=== PATIENT | male | born 1940 | race Caucasian/White ===

== ENCOUNTER → 2017-11-12 | Outpatient (CLI) | payer MEDICARE, BC ==
[~2017-11-12] MED LIST: ASPIR 8181 MG PO; BENTYL 20 MG TA20 M1 PO; BRILINTA90 MG PO; CENTRUM SILVER1 EAC4 PO; CLONAZEPAM 0.50.5 M1 PO; DILAUDID 2 MG TA2 MG PO; EFFIENT10 MG PO; ELIQUIS2.5 MG PO; ELIQUIS5 MG PO; GABAPENTIN 100100 MG PO; KLONOPIN0.5 MG PO; LEVAQUIN 750 M750 MG PO; LISINOPRIL20 MG PO; MELATONIN3 MG PO; NEURONTIN 300M300 M2 PO; NORCO 5-325 TA1 EACH PO; NORVASC10 MG PO; OXYCODONE HCL 55 MG PO; PRILOSEC 20 MG20 MG PO; PRILOSEC20 MG PO; PROBIOTIC1 EAC2 PO; SINGULAIR 10 MG10 M1 PO; TRAMADOL 50 MG50 MG PO; VENTOLIN HFA 1818 GM INH; VITAMIN B-12500 MCG PO
== END ==
LOC: M.NUC 11-07 15:04
DX: T84.032A Mechanical loosening of internal right knee prosthetic joint, initial encounter (principal); R20.2 Paresthesia of skin; I25.110 Atherosclerotic heart disease of native coronary artery with unstable angina pectoris; K21.9 Gastro-esophageal reflux disease without esophagitis; E78.5 Hyperlipidemia, unspecified; Z90.49 Acquired absence of other specified parts of digestive tract; Z96.653 Presence of artificial knee joint, bilateral; Z98.890 Other specified postprocedural states

== ENCOUNTER 2017-12-23 06:11 | Inpatient (IN) | payer MEDICARE, BC ==
[2017-12-04 10:17] LABS: ABSOLUTE EOSINOPHILS 0.2 thou/uL (0.0-0.7); ABSOLUTE LYMPHOCYTES 1.3 thou/uL (0.8-5.3); ABSOLUTE MONOCYTES 0.5 thou/uL (0.0-1.2); BASOPHILS 0.7 %; EOSINOPHILS 2.5 %; HEMATOCRIT 44.3 % (42.0-52.0); HEMOGLOBIN 15.2 gm/dL (14.0-18.0); LYMPHOCYTES 21.9 %; MCH 30.1 pg (26.0-34.0); MCHC 34.2 g/dL (28.0-37.0); MONOCYTES 8.3 %; MPV 7.2 fl. (7.2-11.1); NUCLEATED RBCS 0 /100WBC; PLATELET COUNT* 184 thou/uL (150-400); POLYS 66.6 %; RBC 5.03 mil/uL (4.50-6.00); RDW-CV 13.3 % (10.5-14.5); WBC 6.1 thou/uL (4.0-11.0)
[2017-12-04 10:24] LABS: APTT 27.1 Seconds (25.0-31.3); PROTIME 10.2 Seconds (9.20-11.50)
[2017-12-04 10:34] LABS: ALBUMIN 3.7 g/dL (3.4-5.0); CALCIUM 8.9 mg/dL (8.5-10.1); POTASSIUM 4.7 mmol/L (3.5-5.1); TOTAL BILIRUBIN 0.3 mg/dL (<0.1-1.0); TOTAL PROTEIN 7.1 g/dL (6.4-8.2)
[2017-12-04 11:18] LABS: ESR (SEDRATE) 12 mm/hr (0-20)
[~2017-12-23] VITALS: Ht 188 cm; Wt 95.3 kg
--- NOTE | ~2017-12-23 | EKG ---
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
[~2017-12-23 06:11] MED LIST changes: -DILAUDID 2 MG TA2 MG PO; -ELIQUIS2.5 MG PO; -OXYCODONE HCL 55 MG PO
[2017-12-23 06:51] VITALS: BP 138/73
--- NOTE | 2017-12-23 11:35 | NUR ---
ORDER RECEIVED FOR "OT EVALUATION AND TREATMENT". PLAN TO DEFER TO PHYSICAL THERAPY AT THIS TIME.
[2017-12-23 12:00] VITALS: BP 116/59
--- NOTE | 2017-12-23 12:00 | NUR ---
PATIENT ARRIVED TO UNIT AT 1150. ALERT AND ORIENTED X4. UP WITH ASSIST X1 WITH WALKER AND GAIT BELT. IV IS PATENT AND INFUSING. DENIES NEED FOR PAIN MEDICATION. DENIES NAUSEA. PATIENT HAS BEEN ORIENTATED TO ROOM. VSS ON ROOM AIR. CAP-NO IN PLACE. CALL LIGHT IS WITHIN REACH. NURSING WILL CONTINUE TO MONITOR.
[2017-12-23 16:00] VITALS: BP 152/60
--- NOTE | 2017-12-23 17:15 | NUR ---
ALERT AND ORIENTED X4. UP WITH ASSIST X1 WITH WALKER AND GAIT BELT. IV IS PATENT AND INFUSING. DENIES NEED FOR PAIN MEDICATION. DENIES NAUSEA. ICE PACK IN PLACE. TOLERATING DIET. VSS ON ROOM AIR. HOURLY ROUNDS HAVE BEEN MAINTAINED THROUGHOUT SHIFT. CALL LIGHT IS WITHIN REACH. NURSING WILL CONTINUE TO MONITOR.
[2017-12-23 20:00] VITALS: BP 111/72
[2017-12-23 23:47] VITALS: BP 100/59
[2017-12-24 04:35] VITALS: BP 115/67
[2017-12-24 05:14] LABS: HEMATOCRIT 37.7 % (42.0-52.0); HEMOGLOBIN 13.1 gm/dL (14.0-18.0)
--- NOTE | 2017-12-24 05:31 | NUR ---
PATIENT ALERT AND ORIENTED. VITALS STABLE. RA. DENIES THE NEED FOR PAIN MEDICATION. VOIDING ADEQUATELY PER URINAL. RIGHT KNEE DRESSING C/D/I. DENIES NAUSEA. HOURLY ROUDNS. BED ALARM IN USE. NURSING WILL CONTINUE TO MONITOR.
[2017-12-24 12:27] VITALS: BP 110/58
[2017-12-24] MEDS ORDERED: ELIQUIS2.5 MG PO (12:49)
[2017-12-24] MEDS ORDERED: OXYCODONE HCL 55 MG PO (12:50)
[2017-12-24 12:52] VITALS: BP 110/58
[2017-12-24 16:03] VITALS: BP 123/82
--- NOTE | 2017-12-24 18:14 | NUR ---
PATIENT REMAINS ALERT AND ORIENTED X4. VITAL SIGNS STABLE. OXYGEN SAT 95% ON ROOM AIR. CV: S1S2 WITH HX OF CARDIAC STENTS, HTN. LUNGS ARE DIMINISHED AND PATIENT STATES HE HAS BEEN COUGHING BUT THIS WAS NOT OBSERVED ON THIS SHIFT. PATIENT INITALLY REFUSED TO TAKE PAIN MEDICATION THROUGHOUT THE NIGHT. OXY IR STARTED THIS MORNING WITH THERAPY. THIS AFTERNOON PAIN BECAME UNTOLERABLE PATIENT RATING IT 10/10. MORPHINE GIVEN WITHOUT RELIEF. DOCTOR MICHAEL NOTIFIED. ORDERS TO DC OXY AND START DILAUDID. PATIENTS RELUCTANT TO LET HIM HAVE PAIN MEDICAION THIS MORNING DUE TO PAST EXPERIENCES WITH OXY. AFTER EDUCATION BOTH WERE AGREEABLE THAT HE NEEDED PAIN MEDS AND HE WOULD TRY THE DILAUDID. PATIENT ONLY ABLE TO PARTICIPATE WITH AM THERAPY. IN BED THIS AFTERNOON. DRESSING TO KNEE DRY AND INTACT. ICE PACKS PROVIDED. PATIENT WAS FOUND TO BE AMBULATING BY HIMSELF IN ROOM. BED ALARM IN USE AND EDUCATION GIVEN. IV IN LEFT FA SL. CALL LIGHT WITHIN REACH. NURSING WILL CONTINUE TO MONITOR.
[2017-12-24 20:00] VITALS: BP 177/82
[2017-12-25 00:21] VITALS: BP 152/69
--- NOTE | 2017-12-25 04:51 | NUR ---
PATIENT HAS REMAINED ALERT AND ORIENTED X 4 THROUGHOUT THE SHIFT. RESTING AT INTERVALS ON HOURLY ROUNDS. SOMEWHAT BETTER PAIN CONTROL WITH CHANGE TO ORAL DILAUDID. PATIENT IS REPORTING THAT THE PAIN SEEMS TO BE HIS NERVE PAIN HE HAS BEEN EXPERIENCING SINCE LAST MARCH BUT MUCH WORSE THAN IT HAD BEEN. DRESSING CLEAN AND DRY RIGHT KNEE. VITAL SIGNS STABLE. USING URINAL AT BEDSIDE. HAVE NOT ASSESSED TRANSFERS. CONTINUE TO MONITOR.
[2017-12-25 04:59] LABS: HEMATOCRIT 38.8 % (42.0-52.0)
[2017-12-25 05:31] VITALS: BP 162/82
[2017-12-25 06:29] VITALS: BP 158/79
--- NOTE | 2017-12-25 06:30 | NUR ---
CALLED TO ROOM FOR STATED LIGHT-HEADEDNESS. VITAL SIGNS STABLE BUT WITH O2 SAT 88-90% ON ROOM AIR. O2 RE-APPLIED AT 2L/MIN. RE-CHECK 94% WITHIN A MINUTE. PATIENT HAS BEEN RECEIVING ORAL DILAUDID Q4H. THE LAST DOSE 0400. CONTINUE TO MONITOR FOR RESOLUTION.
[2017-12-25 08:00] VITALS: BP 168/92
[2017-12-25 08:10] VITALS: BP 168/92
[2017-12-25 08:15] VITALS: BP 87/42
[2017-12-25] MEDS ORDERED: DILAUDID 2 MG TA2 MG PO (12:13)
--- NOTE | 2017-12-25 12:41 | NUR ---
SPOKE WITH PT.ABOUT TODAY'S DISCHARGE. HE LIVES WITH HIS AND SHE WILL BE WITH HIM 06/05. HE SAID HIS PAIN IS VERY MUCH IMPROVED. HE CONTINUES TO WANT TO GO TO OUTPT.THERAPY IN [place] AT [facility]. WILL FAX ORDERS TO [facility]. CALLED IN PRESCRIPTION WRITTEN FOR JENNIFER TO [place] [facility]. COPAY IS $19. INFORMED PT. HE HAS A WALKER AT HOME.
--- NOTE | 2017-12-25 14:32 | NUR ---
REPORT GIVEN TO NURSE ASSUMING CARE.
--- NOTE | 2017-12-25 15:00 | NUR ---
PATIENT DISCHARGING TO HOME AT THIS TIME. IV REMOVED. PATIENT AND SPOUSE VERBALIZE UNDERSTANDING OF DC INSTRUCTIONS. FILLED SCRIPTS PRIOR TO DC. PATIENT PARTICIPATED WITH PHYSICAL THERAPY. ABLE TO TRANSFER AND AMBULATE WITH STANDBY ASSIST.
--- NOTE | 2017-12-26 08:53 | NUR ---
CALLED AND FAXED REFERRAL FOR OUTPT THERAPY TO [facility] IN [place], SPOKE WITH DOUGLAS [phone] FAX [phone]
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
== END 2017-12-25 15:02 | disposition home or self-care (01) | DRG 464 ==
LOC: M.TBA 06:11 → M.PRE 08:29 → M.ORTHSURG 11:58 → M.PRE 14:05 → M.ORTHSURG 12-25 15:02
PROVIDERS: Orthopaedic Surgery; ADMIT Internal Medicine
PROC: 0SPC09Z Removal of Liner from Right Knee Joint, Open Approach (ICD-10-PCS; principal; 2017-12-23)
PROC: 0SUC09C Supplement Right Knee Joint with Liner, Patellar Surface, Open Approach (ICD-10-PCS; principal; 2017-12-23)
DX: T84.032A Mechanical loosening of internal right knee prosthetic joint, initial encounter (principal); R71.0 Precipitous drop in hematocrit; M17.11 Unilateral primary osteoarthritis, right knee; G62.9 Polyneuropathy, unspecified; Y83.8 Other surgical procedures as the cause of abnormal reaction of the patient, or of later complication, without mention of misadventure at the time of the procedure; I10 Essential (primary) hypertension; Z96.653 Presence of artificial knee joint, bilateral; E78.5 Hyperlipidemia, unspecified; I25.10 Atherosclerotic heart disease of native coronary artery without angina pectoris; Y92.89 Other specified places as the place of occurrence of the external cause; Z90.49 Acquired absence of other specified parts of digestive tract; Z86.711 Personal history of pulmonary embolism; Z79.82 Long term (current) use of aspirin; Z79.899 Other long term (current) drug therapy; Z23 Encounter for immunization

== ENCOUNTER → 2018-01-02 | Outpatient (CLI) | payer MEDICARE, BC ==
[~2018-01-02] MED LIST changes: +DILAUDID 2 MG TA2 MG PO; +ELIQUIS2.5 MG PO; +OXYCODONE HCL 55 MG PO
== END ==
LOC: M.ULTRA 12:58
DX: M71.21 Synovial cyst of popliteal space [Baker], right knee (principal); I82.890 Acute embolism and thrombosis of other specified veins

== ENCOUNTER → 2019-04-01 | Outpatient (CLI) | payer MEDICARE, BC ==
--- NOTE | 2019-04-01 16:06 | EXE ---
[place] [address] STRESS ECHOCARDIOGRAM Name: PILAR LANTIGUA Room: [facility]#: [id number] Admission: 04/01/19 Attend Phys: Turner Berman MD Discharge: Date of : 44 Date of Service: 04/01/19 1606 Report #: [id number] THIS REPORT FOR: //name// APPROVED REPORT Study performed: 04/01/2019 14:57:40 Exam: Dobutamine Stress Echo Indication: CAD Patient Location: Out-Patient Stress Nurse: Casie Varghese RN Supervising Physician: Turner Berman MD Ht: 6 ft 2 in HR: 61 bpm BP: 129/87 mmHg Medical History Cardiac Risk Factors: Hyperlipidemia, HTN Procedure The patient underwent a Pharmacological Stress Test using Dobutamine. Blood pressure, heart rate, and EKG were monitored. An Echocardiogram was performed by motion study technician in four stages in quad fashion. At peak stress, four selected images were obtained and placed side by side with resting images for comparison. Stress Test Details Stress Test: Pharmacological Stress Test using Dobutamine. HR Resting HR: 61 bpm Max Heart Rate (APMHR): 143 bpm Max HR Achieved: 123 bpm Target HR (85% APMHR): 121 bpm % of APMHR: 86 Recovery HR: 83 bpm HR response to stress: Normal HR response to stress BP Resting BP: 129/87 mmHg Max BP: 147/65 mmHg Recovery BP: 142/67 mmHg BP response to stress: Normal blood pressure response to stress. ECG Resting ECG: Sinus Rhythm, [place] [address] STRESS ECHOCARDIOGRAM Name: PILAR LANTIGUA Room: [facility]#: [id number] Admission: 04/01/19 Attend Phys: Turner Berman MD Discharge: Date of : 44 Date of Service: 04/01/19 1606 Report #: [id number] Stress ECG: Sinus Rhythm, nonspecific ST-T abnormalities ST Change: Upsloping ST depression Maximum ST Deviation: 0.5 mm Arrhythmia: VPC's Recovery ECG: Sinus Rhythm, nonspecific ST-T abnormalities Recovery ST Change: Upsloping ST depression Recovery ST Deviation: 0.5 mm Recovery Arrhythmia: VPC Clinical Reason for Termination: Completed protocol Pre-Stress Echo The resting Echocardiogram showed normal left ventricular contractility with an estimated Ejection Fraction of about 55-60%. Post-Stress Echo The stress Echocardiogram showed normal left ventricular contractility with an estimated Ejection Fraction of about >70%. Conclusion Clinical Response: Non-ischemic Stress ECG Response: Indeterminant Stress Echo Images: Non-ischemic low risk dobutamine stress echo for predicting future cardiac events Other Information Study Quality: Good <Conclusion> low risk dobutamine stress echo for predicting future cardiac events <ELECTRONICALLY SIGNED> By: Turner Berman MD, [facility] 04/01/19 160 05 05 Turner Berman MD, [facility] /INF
== END ==
LOC: M.CRD 14:28
DX: I25.10 Atherosclerotic heart disease of native coronary artery without angina pectoris (principal); E78.5 Hyperlipidemia, unspecified; I10 Essential (primary) hypertension; Z79.899 Other long term (current) drug therapy

== ENCOUNTER 2019-05-17 19:04 | Emergency (ER) | payer MEDICARE, BC ==
[~2019-05-17] VITALS: Ht 188 cm; Wt 95.3 kg
[2019-05-17] MEDS ORDERED: LIPITOR 20 MG T20 M1 PO (19:19)
[2019-05-17] MEDS ORDERED: ASPIR 8181 MG PER TUBE (19:19)
[2019-05-17 19:57] LABS: ABSOLUTE EOSINOPHILS 0.2 thou/uL (0.0-0.7); ABSOLUTE LYMPHOCYTES 1.7 thou/uL (0.8-5.3); ABSOLUTE MONOCYTES 0.5 thou/uL (0.0-1.2); ABSOLUTE NEUTROPHILS 3.8 thou/uL (1.6-8.1); BASOPHILS 0.5 %; EOSINOPHILS 2.6 %; HEMATOCRIT 42.2 % (42.0-52.0); HEMOGLOBIN 14.4 gm/dL (14.0-18.0); LYMPHOCYTES 27.5 %; MCH 30.1 pg (26.0-34.0); MCHC 34.1 g/dL (28.0-37.0); MCV 88.2 fL (80.0-100.0); MONOCYTES 8.1 %; MPV 7.4 fl. (7.2-11.1); NUCLEATED RBCS 0 /100WBC; PLATELET COUNT* 142 thou/uL (150-400); POLYS 61.3 %; RBC 4.78 mil/uL (4.50-6.00); WBC 6.1 thou/uL (4.0-11.0)
[2019-05-17 20:03] LABS: CHLORIDE 104 mmol/L (98-107); CO2 31 mmol/L (21-32); POTASSIUM 3.8 mmol/L (3.5-5.1); SODIUM 142 mmol/L (136-145)
[2019-05-17 20:04] LABS: ANION GAP 7 mmol/L (7-16); BUN 23 mg/dL (7-18); CALCIUM 9.1 mg/dL (8.5-10.1); CREATININE 1.1 mg/dL (0.6-1.3); GLUCOSE 122 mg/dL (70-99)
[2019-05-17 20:06] LABS: INR 1.1; PROTIME 11.1 Seconds (9.20-11.50)
[2019-05-17 20:16] LABS: ALBUMIN 3.7 g/dL (3.4-5.0); ALKALINE PHOSPHATASE 94 U/L (46-116); NT-PRO BRAIN NAT PEPTIDE 207 pg/mL (<300); SGOT 17 U/L (15-37); SGPT 28 U/L (30-65); TOTAL BILIRUBIN 0.7 mg/dL (<0.1-1.0); TOTAL PROTEIN 6.9 g/dL (6.4-8.2); TROPONIN-I LEVEL <0.06 ng/mL (<0.06)
[2019-05-17 21:27] LABS: URINE BILIRUBIN NEGATIVE (Negative); URINE BLOOD NEGATIVE (Negative); URINE CLARITY CLEAR; URINE COLOR YELLOW; URINE GLUCOSE-RANDOM NEGATIVE (Negative); URINE KETONES NEGATIVE (Negative); URINE LEUKOCYTES-REFLEX NEGATIVE (Negative); URINE NITRITE-REFLEX NEGATIVE (Negative); URINE PROTEIN NEGATIVE (Negative)
[2019-05-17 22:12] VITALS: BP 158/77
--- NOTE | 2019-05-18 12:35 | EKG ---
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 : 1940 Requested By: Yamile Bellamy Order Number: [id number] MD: Turner Berman Measurements Intervals [place] Rate: 66 P: 12 [place]: 177 QRS: -30 QRSD: 104 T: 53 QT: 441 QTc: 463 Interpretive Statements Sinus rhythm Multiple premature complexes, vent & supraven Left axis deviation Baseline wander in lead(s) V1,V2,V4,V5,V6 Compared to ECG 12/04/2017 10:24:37 pvc's now present Electronically Signed On 05-18-2019 12:35:11 CDT by Turner Berman [email or web address] <ELECTRONICALLY SIGNED> By: Turner Berman MD, [facility] 05/18/19 1235 34 34 Turner Berman MD, [facility] /EPI
== END 2019-05-17 22:13 | disposition home or self-care (01) ==
LOC: M.ERS 19:04
PROVIDERS: Emergency Medicine
DX: G47.00 Insomnia, unspecified (principal); M25.472 Effusion, left ankle; I10 Essential (primary) hypertension; Z90.49 Acquired absence of other specified parts of digestive tract; Z96.653 Presence of artificial knee joint, bilateral; Z95.5 Presence of coronary angioplasty implant and graft; Z86.73 Personal history of transient ischemic attack (TIA), and cerebral infarction without residual deficits

== ENCOUNTER 2019-06-30 18:18 | Inpatient (IN) | payer MEDICARE, BC ==
[~2019-06-30] VITALS: Ht 188 cm; Wt 95.3 kg
[~2019-06-30 18:18] MED LIST changes: +LIPITOR 20 MG T20 M1 PO; +OMEPRAZOLE40 MG PO; -PRILOSEC 20 MG20 MG PO
[2019-06-30 18:30] VITALS: BP 126/67
[2019-06-30 19:29] LABS: ABSOLUTE EOSINOPHILS 0.1 thou/uL (0.0-0.7); ABSOLUTE LYMPHOCYTES 1.5 thou/uL (0.8-5.3); ABSOLUTE MONOCYTES 0.6 thou/uL (0.0-1.2); ABSOLUTE NEUTROPHILS 6.5 thou/uL (1.6-8.1); BASOPHILS 0.5 %; EOSINOPHILS 0.6 %; HEMATOCRIT 44.9 % (42.0-52.0); HEMOGLOBIN 15.1 gm/dL (14.0-18.0); LYMPHOCYTES 17.7 %; MCH 30.2 pg (26.0-34.0); MCHC 33.7 g/dL (28.0-37.0); MCV 89.8 fL (80.0-100.0); MONOCYTES 7.2 %; MPV 7.5 fl. (7.2-11.1); NUCLEATED RBCS 0 /100WBC; PLATELET COUNT* 169 thou/uL (150-400); RDW-CV 13.9 % (10.5-14.5); WBC 8.7 thou/uL (4.0-11.0)
[2019-06-30 19:45] LABS: APTT 26.2 Seconds (25.0-31.3); INR 1.1; PROTIME 11.1 Seconds (9.20-11.50)
[2019-06-30 19:46] LABS: ANION GAP 8 mmol/L (7-16); BUN 36 mg/dL (7-18); CALCIUM 9.2 mg/dL (8.5-10.1); CHLORIDE 102 mmol/L (98-107); CO2 28 mmol/L (21-32); GLUCOSE 112 mg/dL (70-99); POTASSIUM 5.4 mmol/L (3.5-5.1); SODIUM 138 mmol/L (136-145)
[2019-06-30 19:55] LABS: ALBUMIN 4.4 g/dL (3.4-5.0); ALKALINE PHOSPHATASE 103 U/L (46-116); LIPASE 75 U/L (73-393); SGOT 51 U/L (15-37); SGPT 43 U/L (30-65); TOTAL BILIRUBIN 1.3 mg/dL (<0.1-1.0); TOTAL PROTEIN 7.9 g/dL (6.4-8.2); TROPONIN-I LEVEL <0.06 ng/mL (<0.06)
[2019-06-30 23:20] VITALS: BP 127/63
[2019-06-30 23:30] VITALS: BP 131/63
[2019-07-01 04:00] VITALS: BP 102/57
[2019-07-01 05:31] LABS: HEMATOCRIT 38.6 % (42.0-52.0); HEMOGLOBIN 13.3 gm/dL (14.0-18.0); MCH 30.9 pg (26.0-34.0); MCHC 34.4 g/dL (28.0-37.0); MCV 89.6 fL (80.0-100.0); MPV 7.1 fl. (7.2-11.1); RBC 4.3 mil/uL (4.50-6.00); RDW-CV 13.6 % (10.5-14.5); WBC 6.4 thou/uL (4.0-11.0)
--- NOTE | 2019-07-01 05:42 | NUR ---
PATIENT ARRIVED ON THE FLOOR FROM ER AT ABOUT 2315. PATIENT ADMISSION HISTORY AND ASSESSMENT WAS COMPLETED CHARTED. IV FLUIDS WERE STARTED AT 100 ML/HR. PATIENT WAS GIVEN PAIN MEDICINE ONCE WITH SOME RELIEF. UPON ARRIVAL TOOK THREE PEOPLE TO TRANSFER PATIENT FROM CART TO THE BED. A COUPLE HOURS LATER PATIENT WALKED TO THE BATHROOM WITH STANDBY ASSIST. WILL CONTINUE TO MONITOR.
[2019-07-01 05:59] LABS: ALBUMIN 3.3 g/dL (3.4-5.0); CALCIUM 8.2 mg/dL (8.5-10.1); CREATININE 0.9 mg/dL (0.6-1.3); TOTAL BILIRUBIN 1.1 mg/dL (<0.1-1.0)
[2019-07-01 07:30] VITALS: BP 123/64
[2019-07-01 08:33] LABS: HEMATOCRIT 39.3 % (42.0-52.0); HEMOGLOBIN 13.4 gm/dL (14.0-18.0)
--- NOTE | 2019-07-01 10:15 | EKG ---
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: : 1940 Requested By: Kristine Robles Order Number: [id number] MD: Turner Berman Measurements Intervals [place] Rate: 74 P: 22 [place]: 163 QRS: -32 QRSD: 102 T: 24 QT: 418 QTc: 464 Interpretive Statements Sinus rhythm Multiple ventricular premature complexes Left axis deviation Anterior infarct, old Compared to ECG 05/17/2019 19:35:04 no change Electronically Signed On 07-01-2019 10:14:56 CDT by Turner Berman [email or web address] <ELECTRONICALLY SIGNED> By: Turner Berman MD, [facility] 07/01/19 1014 09 09 Turner Berman MD, [facility] /EPI
[2019-07-01 11:00] VITALS: BP 126/66
[2019-07-01 12:23] VITALS: BP 119/69; BP 119/71
[2019-07-01 12:24] VITALS: BP 108/69
--- NOTE | 2019-07-01 13:41 | NUR ---
MET WITH PT AND TO DISCUSS HOME SITUATION/DC PLANNING. PT LIVES WITH , HE IS INDEPENDENT AND ACTIVE. HAS WALKER AND CANE, DOESN'T USE. PT NOT ABLE TO RECALL EVENTS OF YESTERDAY. WANTS TO KNOW WHAT'S WRONG WITH HIS HIP. PT PLANS TO RETURN HOME AT DC. WILL FOLLOW
--- NOTE | 2019-07-01 18:12 | NUR ---
RECEIVED PT CARE 0700. HE IS AWAKE/ALERT AND ORIENTED X4. VSS. 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 HEART RATE 50S. O2 SAT 93% ON ROOM AIR. UP STANDBY ASSIST IN ROOM. C/O LEFT HIP AND LOWER BACK PAIN. PRN PAIN MEDICATION GIVEN WITH PARTIAL RELIEF. CT OF HIP COMPLETED. PATIENT AND HIS IN ROOM WAITING FOR CT RESULTS. PT/OT IN TO WORK WITH THE PATIENT. AM ASSESSMENT CHARTED. MEDS GIVEN PER MAR. PATIENT BECOMING FRUSTRATED WITH THE PLAN OF CARE, ASKING WHY HE 'IS NOT DOING ANYTHING' AND FRUSTRATED ABOUT CT HIP NOT BEING READ IN A 'TIMELY' MANNER. EXPLAINED TO THE PATIENT REGARDLESS OF CT RESULTS, PT/OT, INCREASING ACTIVITY AND PAIN MANAGEMENT IS OUR PLAN OF CARE. I EXPLAINED I ANTICIPATED DC TO HOME WOULD POTENTIALLY BE TOMORROW AND SOON CT RESULTS WERE BACK I WOULD RELAY THEM TO HIM AND HIS . PATIENT BECAME MORE ANXIOUS AND REQUESTING TO LEAVE AMA. REASSURANCE GIVEN AND PATIENTS EVEN ATTEMPTED TO GET THE PATIENT TO STAY AND RECEIVE CARE. PATIENT INSISTED ON LEAVING. FINANCIAL INSTITUTION VICE PRESIDENT REMOVED AND RETUREND TO NURSE'S DESK. IV DISCONTINUED. PATIENTS BELONGINGS PACKED AND LEAVING WITH THE PATIENT. PATIENT LEAVING AMBULATORY ACCOMPANIED BY HIS .
== END 2019-07-01 17:26 | disposition left against medical advice (07) | DRG 535 ==
LOC: M.ERS 18:18 → M.TBA-ER 21:34 → M.2W 21:34
PROVIDERS: Internal Medicine; Nurse Practitioner Family; ADMIT Family Medicine
DX: S32.592A Other specified fracture of left pubis, initial encounter for closed fracture (principal); K57.91 Diverticulosis of intestine, part unspecified, without perforation or abscess with bleeding; M25.552 Pain in left hip; Z96.653 Presence of artificial knee joint, bilateral; I10 Essential (primary) hypertension; S70.02XA Contusion of left hip, initial encounter; R59.0 Localized enlarged lymph nodes; I25.10 Atherosclerotic heart disease of native coronary artery without angina pectoris; M17.0 Bilateral primary osteoarthritis of knee; Z53.21 Procedure and treatment not carried out due to patient leaving prior to being seen by health care provider; Z90.49 Acquired absence of other specified parts of digestive tract; Z95.5 Presence of coronary angioplasty implant and graft; Z86.73 Personal history of transient ischemic attack (TIA), and cerebral infarction without residual deficits; Z86.711 Personal history of pulmonary embolism; V84.9XXA Unspecified occupant of special agricultural vehicle injured in nontraffic accident, initial encounter; Y93.89 Activity, other specified; Y92.89 Other specified places as the place of occurrence of the external cause; Y99.8 Other external cause status

== ENCOUNTER 2019-08-25 08:46 | Inpatient (IN) | payer MEDICARE, BC ==
[~2019-08-25] VITALS: Ht 188 cm; Wt 95.3 kg
--- NOTE | ~2019-08-25 | PROC ---
[address] [address] PROCEDURE REPORT Name: PILAR LANTIGUA Room: [address] IN ..#: [id number] Admission: 08/25/19 Attend Phys: Nawaf Cedillo MD Discharge: 08/27/19 Date of : 44 Report #: [id number] THIS REPORT FOR: //name// For GI report, please see the Provation report in Perceptive 7 content. By: 0656Medical Records Staff CONRAD /CARI
--- NOTE | ~2019-08-25 | CON ---
[address] [address] CONSULTATION Name: PILAR LANTIGUA Room: [address] IN [facility]#: [id number] Admission: 08/25/19 Attend Phys: Nawaf Cedillo MD Discharge: Date of : 44 Report #: [id number] THIS REPORT FOR: //name// CC: Nawaf Tidwell DO DICTATED BY: Quyen Marques [facility] DATE OF SERVICE: 08/26/2019 REASON FOR CONSULTATION: Mediastinal lymphadenopathy, looking at source for this. Please note at the time of this dictation, the patient was seen and physically examined by myself. HISTORY OF PRESENT ILLNESS: This is a 79-year-old male who presented to the Emergency Room with worsening of his cough and congestion and respiratory issues. He was noticing a lot of extra phlegm and noticed a change in his voice. He has been taking Mucinex double dose for the last month without improvement in his symptoms. He states he has been unable to sleep at night because he gets very winded and has had some occasional difficulty swallowing. I did see the patient back in 2014, he had an EGD that showed a 3-cm hiatal hernia, otherwise negative. Colonoscopy showed external hemorrhoids, otherwise was negative at that time. It is also noted that his hemoglobin about a year ago was 15 and on admission here, it was 13. He states he has had a nonproductive cough and just cannot seem to clear his raspy voice and the change in his voice and the mucus that he feels like that he has. ALLERGIES: No known drug allergies. MEDICATIONS: From home include multivitamin, Zestril, Neurontin, aspirin, Lipitor, Prilosec, ibuprofen, and clonazepam. PAST MEDICAL HISTORY: He has had a history of coronary artery disease with stenting, back in 2013. He has had a PE in the left lung, hypertension, history of a stroke on the right side. 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 PAST SURGICAL HISTORY: Cholecystectomy, bilateral knee replacement, hernia, cardiac stents, eye surgery, 2 rotator cuff surgeries. FAMILY HISTORY: Negative for any GI or female cancers. SOCIAL HISTORY: Never smoked. Denies any alcohol [place] [address] CONSULTATION Name: [address] Room: [address]#: [id number] Admission: 08/25/19 Attend Phys: Nawaf Cedillo MD Discharge: Date of : 42 Report #: [id number] REVIEW OF SYSTEMS: Twelve-point review of systems is essentially negative except what is mentioned in the HPI. PHYSICAL EXAMINATION: VITAL SIGNS: Temperature 36.7, pulse 99, respirations 20, blood pressure 147/83. HEART: Regular rate and rhythm. LUNGS: Clear with no wheezing. ABDOMEN: Soft, positive bowel sounds in all 4 quadrants with no masses or tenderness noted. LABORATORY DATA: Hemoglobin is 13.1, white count is 13.7, platelets 213. GFR is 65. PT is 10.6, INR is 1. CT of the chest shows no evidence of PE, extensive subcarinal right hilar superior mediastinal adenopathy suggestive of some neoplastic such as may be a lymphoma. There are patchy and strand-like opacities in the lower lungs bilaterally and a small right pleural effusion. IMPRESSION: 1. Dysphagia. 2. Mediastinal adenopathy noted. 3. Leukocytosis. 4. History of pulmonary embolism. 5. History of coronary artery disease with stents. PLAN: 1. EGD today with Dr. Mcnair to rule out esophageal cause. 2. We will discuss the case with Dr. Danie Up regarding EUS for sampling of the adenopathy. 3. Further recommendations to be made after the procedure has been performed. Thank you for allowing us to participate in this patient's care. Please do not hesitate to call with any questions in regard to this consult. By: 1124 [id number] Mcnair MD /hailee
[2019-08-25 08:51] VITALS: BP 151/68
[2019-08-25] MEDS ORDERED: IBU800 MG PO (08:58)
[2019-08-25] MEDS ORDERED: PRILOSEC OTC20 MG PO (08:58)
[2019-08-25] MEDS ORDERED: CLONAZEPAM 0.50.5 M1 PO (08:59)
[2019-08-25 09:14] LABS: ABSOLUTE EOSINOPHILS 0.1 thou/uL (0.0-0.7); ABSOLUTE LYMPHOCYTES 1.1 thou/uL (0.8-5.3); ABSOLUTE MONOCYTES 0.4 thou/uL (0.0-1.2); ABSOLUTE NEUTROPHILS 4.9 thou/uL (1.6-8.1); BASOPHILS 0.5 %; EOSINOPHILS 1.6 %; HEMATOCRIT 41.4 % (42.0-52.0); HEMOGLOBIN 14.2 gm/dL (14.0-18.0); LYMPHOCYTES 16.7 %; MCH 30.4 pg (26.0-34.0); MCHC 34.3 g/dL (28.0-37.0); MCV 88.7 fL (80.0-100.0); MONOCYTES 5.8 %; MPV 6.7 fl. (7.2-11.1); NUCLEATED RBCS 0 /100WBC; PLATELET COUNT* 204 thou/uL (150-400); POLYS 75.4 %; RBC 4.67 mil/uL (4.50-6.00); WBC 6.4 thou/uL (4.0-11.0)
[2019-08-25 09:24] LABS: CALCIUM 9.3 mg/dL (8.5-10.1); CREATININE 1.1 mg/dL (0.6-1.3); POTASSIUM 4.2 mmol/L (3.5-5.1)
[2019-08-25 09:42] LABS: ALBUMIN 3.8 g/dL (3.4-5.0); TOTAL BILIRUBIN 0.4 mg/dL (<0.1-1.0); TOTAL PROTEIN 7.5 g/dL (6.4-8.2)
[2019-08-25 09:49] LABS: APTT 26.4 Seconds (25.0-31.3); PROTIME 10.6 Seconds (9.20-11.50)
--- NOTE | 2019-08-25 13:51 | NUR ---
PT OIENTED TO ROOM AND UNIT. BED LOW AND LOCKED, SIDE RAILS UPX3 CALL LIGHT IN REACH, TELE APPLIED. WILL CONTINUE TO ASSESS.
[2019-08-25 14:20] VITALS: BP 137/64
--- NOTE | 2019-08-25 15:16 | EKG ---
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: : 1940 Requested By: Jules Amador Order Number: [id number] MD: Harshil Crane Measurements Intervals [place] Rate: 65 P: 44 [place]: 177 QRS: -24 QRSD: 106 T: 67 QT: 393 QTc: 409 Interpretive Statements Sinus rhythm Borderline left axis deviation Delayed R-wave progression Baseline wander in lead(s) V1 Compared to ECG 06/30/2019 19:10:13 Ventricular premature complex(es) no longer present Electronically Signed On 08-25-2019 15:16:04 [employer] CAPTURE POWER PLANT OPERATOR by Harshil Crane [email or web address] <ELECTRONICALLY SIGNED> By: Harshil Crane MD, FACC 08/25/19 1516 Harshil Crane MD, FAC /EPI
--- NOTE | 2019-08-25 15:56 | NUR ---
PAGE DR. PEREIRA AT 1430 ABOUT PT'S TACHYCARDIA AROUND 115 BPM. AWAITING RETURN CALL.
[2019-08-25 17:24] VITALS: BP 139/72
[2019-08-25 19:30] VITALS: BP 148/71
[2019-08-26] VITALS: BP 160/82
[2019-08-26 04:00] VITALS: BP 130/79
[2019-08-26 04:50] LABS: HEMOGLOBIN 13.1 gm/dL (14.0-18.0); MCH 30.2 pg (26.0-34.0); MCHC 33.7 g/dL (28.0-37.0); MCV 89.7 fL (80.0-100.0); NUCLEATED RBCS 0 /100WBC; PLATELET COUNT* 213 thou/uL (150-400); RBC 4.35 mil/uL (4.50-6.00); RDW-CV 13.7 % (10.5-14.5); WBC 13.7 thou/uL (4.0-11.0)
[2019-08-26 05:03] LABS: CREATININE 1.1 mg/dL (0.6-1.3)
[2019-08-26 06:18] LABS: ABSOLUTE LYMPHOCYTES 0.8 thou/uL (0.8-5.3); ABSOLUTE MONOCYTES 0.1 thou/uL (0.0-1.2); ABSOLUTE NEUTROPHILS 12.7 thou/uL (1.6-8.1); ANISOCYTOSIS 1+; PLATELET ESTIMATE ADEQUATE; POIKILOCYTOSIS 1+
[2019-08-26 08:06] VITALS: BP 147/83
--- NOTE | 2019-08-26 09:51 | EKG ---
[place] [address] ELECTROCARDIOGRAM REPORT Name: PILAR LANTIGUA Room: [address] ADM IN [facility].#: [id number] Admission: 08/25/19 Attend Phys: Nawaf Cedillo MD Discharge: Date of : 42 Report #: [id number] THIS REPORT FOR: //name// 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: JW : 1940 Requested By: Doug Avery Order Number: [id number] Reading MD: Turner Berman Measurements Intervals [place] Rate: 115 P: 81 AL: 156 QRS: -28 QRSD: 101 T: 161 QT: 360 QTc: 498 Interpretive Statements Sinus tachycardia Inferior infarct, old Probable anteroseptal infarct, old Lateral leads are also involved Compared to ECG 08/25/2019 09:14:13 Myocardial infarct finding now present Sinus rhythm no longer present Electronically Signed On 08-26-2019 9:51:49 [employer]ANDLE [employer] by Turner Berman [email or web address] <ELECTRONICALLY SIGNED> By: Turner Berman MD, FAC 08/26/19 0951 0007 0007 Turner Berman MD, [facility] /EPI
--- NOTE | 2019-08-26 11:28 | NUR ---
Pt is A&O. Resides at home with . Independent. Pt stated that he has a walker and cane at home, but does not currently need to use it. No hx of HH or SNF. Goal is home at ca.
[2019-08-26 15:49] VITALS: BP 150/74
--- NOTE | 2019-08-26 16:38 | CON ---
[address] [address] CONSULTATION Name: PILAR LANTIGUA Room: [address] IN ..#: [id number] Admission: 08/25/19 Attend Phys: Nawaf Cedillo MD Discharge: Date of : 42 Report #: [id number] THIS REPORT FOR: //name// CC: Nawaf Tidwell DO CARDIOLOGY CONSULTATION HISTORY OF PRESENT ILLNESS: The patient is a 79-year-old white male who I was asked to see in the hospital today after he is complaining of chest pain. The patient apparently presented here to [facility] in 2013, complaining of chest pain. He was seen by Dr. Pérez at that time and had 2 coronary stents placed. He has done well from a cardiac standpoint since that time. He had a stress echocardiogram done just in 03/2019 using dobutamine. There was no wall motion abnormalities noted with dobutamine stress. This is felt to be a low-risk dobutamine stress echo for predicting future cardiac events. The [place] However, the past several weeks, he has had increasing shortness of breath and a cough. Because of shortness of breath, he finally came to the emergency room yesterday and was admitted. Last night, he was given a breathing treatment. During the breathing treatment, he got short of breath and noticed some left-sided chest pain. Cardiology consultation was requested. He denied the pain being related to taking deep breath. There is no radiation of the pain into his arms. Denied diaphoresis or nausea. He denies palpitations or syncope. PAST MEDICAL HISTORY: Otherwise significant for knee surgery, cholecystectomy, appendectomy, shoulder surgery, hypertension. MEDICATIONS: Include lisinopril, Lipitor, Prilosec, aspirin. ALLERGIES: HE HAS AN ALLERGY TO OXYCODONE. FAMILY HISTORY: Positive for heart disease. SOCIAL HISTORY: He is . 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 No smoking or alcohol abuse. REVIEW OF SYSTEMS: He apparently had a stroke in the past affecting the right side of his body. He has had no history of peptic ulcer disease, liver disease, kidney disease, cancer, psychiatric illness, chronic skin condition. PHYSICAL EXAMINATION: GENERAL: Revealed an elderly male, in no acute distress. VITAL SIGNS: Blood pressure 130/80, pulse is 90, he is afebrile. HEENT: He was anicteric. Conjunctivae are pink. Mucous membranes moist. NECK: Veins nondistended. No carotid [place] [address] CONSULTATION Name: PILAR LANTIGUA Room: [address] IN [facility]#: [id number] Admission: 08/25/19 Attend Phys: Nawaf Cedillo MD Discharge: Date of : 42 Report #: [id number] CHEST: Clear to auscultation. CARDIOVASCULAR: Regular rate and rhythm. ABDOMEN: Soft. EXTREMITIES: Had no edema, no Homans' sign. Dorsalis pedis pulse 2+ bilaterally. SKIN: Warm, dry. NEUROLOGIC: Nonfocal. RADIOLOGICAL DATA: His ECG showed a sinus rhythm. There were no significant ST or T-wave changes. His workup in the emergency room yesterday, he had a chest x-ray that showed normal heart size and clear lung guerrier. He had a CT scan of the chest using a PE protocol that showed no pulmonary embolus. There was mediastinal adenopathy suggesting possible lymphoma, some atelectasis, small right effusion. LABORATORY DATA: Sodium 138, creatinine 1.1. Troponin 0.06. His white blood cell count 13.7, hemoglobin 13.1. IMPRESSION AND RECOMMENDATIONS: 1. Chest pain. Suspect exacerbated by breathing treatment. Normal nuclear stress test done this past summer. Recommend no further cardiac evaluation. I would continue aspirin a day. 2. Shortness of breath. Reason unclear. 3. Mediastinal adenopathy. 4. Hypertension. 5. Hyperlipidemia. The patient is on a statin drug. 6. Previous stroke. <ELECTRONICALLY SIGNED> By: Turner Berman MD, FACC 08/26/19 1638 1103 1133Dfrannie Berman MD, FACC /nt
[2019-08-26 19:30] VITALS: BP 142/80
[2019-08-27 08:00] VITALS: BP 155/77
--- NOTE | 2019-08-27 11:17 | NUR ---
ASSUMED PT CARE AT 0800, AOX4, UP AD [place], O2 SAT 90'S RA. DENIES PAIN PT FOR DISCHARGE. CONCERN WITH FOLLOW UP APPOINTMENTS DISCUSSED. VSS, AM ASSESSMENT CHARTED, MEDS GIVEN PER MAR, CALL LIGHT WITHIN REACH, WILL CONTINUE TO MONITOR.
[2019-08-27 11:27] VITALS: BP 155/77
[2019-08-27] MEDS ORDERED: CARAFATE1 GM PO (11:39)
[2019-08-27] MEDS ORDERED: CEFDINIR300 MG PO (11:40)
--- NOTE | 2019-08-27 12:08 | NUR ---
DISCHARGED PLAN DISCUSS WITH THE PT. MEDICATION PACKET GIVEN. IV REMOBED. ALL BELONGINGS PACKED AND CHECK. APPOINTMENT TO [facility] ON 09/03/19 CONFIRMED BY GI. PREP FOR THE BIOPSY DISCUSSED BY CHARTERED ACCOUNTANT. PT ONCOLOGY NOTIFIED APPOINTMENT TO SET AT DISCHARGE. ALL NEEDED CONTACT INFORMATION AND QUESTION ADDRESSED. LEFT THE UNIT AT 1206.
--- NOTE | 2019-08-27 19:06 | PATH ---
[address] [address] PATHOLOGY RPT PROCEDURE Name: WILLIAM LANTIGUA Room: [address] IN .R.#: [id number] Admission: 08/25/19 Date of : 44 Discharge: 08/27/19 Report #: [id number] Path Case #: [id number] [facility] Accession Number: [id number] . 01 Material submitted: . stomach - ANTRAL EROSIONS; RULE OUT H. PYLORI . 01 Clinical history: . None provided . 02 Diagnosis: Stomach, antrum, biopsy: - Chronic superficial gastritis, moderate, with possible focal superficial erosion. - No evidence of Helicobacter pylori on immunoperoxidase stain. . (SKM:mml; 08/27/2019) QLM 08/27/2019 1312 Local . 02 Electronically signed: . Amish Clark MD, Pathologist NPI- [id number] . 01 Gross description: . Received in formalin labeled "Homfeld, William, antral erosions, rule out H. pylori," are 5 segments of saul soft tissue measuring 1.2 x 0.7 x 0.3 cm in aggregate dimensions and ranging from 0.3 to 0.5 cm in maximum dimension. The specimen is submitted entirely in cassette A1. (TSD; 08/26/2019) TOB/TOB 08/26/20192050 [facility] . 02 Pathologist provided ICD-10: K29.30 . 02 CPT . 032989, C06349 Specimen Comment: A courtesy copy of this report has been sent to [phone] Specimen Comment: [phone], Specimen Comment: Report sent to ,DR HALL / DR ARANGO Performed at: 01 [facility] [address] [place] [address] [address], [place], [place] [id number] MD Clay Herrera MD Phone: [phone] Performed at: 02 [facility] [address], [place], [place] [id number] MD Avila Estrella MD Phone: [phone]
--- NOTE | 2019-08-28 09:46 | CON ---
[address] [address] CONSULTATION Name: PILAR LANTIGUA Room: [address] IN .R.#: [id number] Admission: 08/25/19 Attend Phys: Nawaf Cedillo MD Discharge: 08/27/19 Date of : 42 Report #: [id number] THIS REPORT FOR: //name// CC: Nawaf Tillamniam REQUESTING PHYSICIAN: Nawaf Cedillo MD REASON FOR CONSULTATION: Extensive mediastinal subcarinal adenopathy. DISCUSSION: The patient is a pleasant 79-year-old nonsmoking man with no prior history of documented lung disease. He has been having trouble with increased cough and congestion over the last month or so. Typically, he may have some issues and took several days of Mucinex that seems to help. He relates to having pneumonia when he was a child. However, he continued to have problems, was getting more short of breath. He was not having any fevers at home. No chest pain at home. He was seen in the Emergency Department yesterday morning. Was not having any hemoptysis, scant sputum. No chest pain at home as noted. He does have a remote history of pulmonary embolism. Known history of coronary artery disease and is status post stent placement back in 2013. He was seen in the Emergency Department. EKG was unremarkable. He did have a chest x-ray done, which was unremarkable, but this was followed by a CTA of his chest with PE protocol. No pulmonary emboli were seen. It did reveal, however, he had extensive adenopathy noted in the superior mediastinal and subcarinal areas, also on the right hilar and to a lesser degree in the left hilar area. He was admitted. He has been afebrile since admission. He does note when he has received nebulizer treatments yesterday, he developed chest pain. It was not relieved with the nitroglycerin. When he took a different medication, he noted still cause the pain. He has not taken any more breathing treatments. He is not on any anticoagulation therapy at home other than two baby aspirin. He has been off all other anticoagulation. He has not had any fevers, chills or sweats at home. Denies any difficulty swallowing. He is still unable to swallow meat and the large Mucinex pills. No sweats or chills. Weight has been stable. He did sustain a fall back in June, was helping out on a farm area. He was seen in the Emergency Department because of that with pain and he had a fracture of his pelvis. CT abdomen done at that time did show evidence of subcarinal adenopathy. I do note he was hospitalized here back in the year [address] chest done at that time was negative for any abnormalities noted. He has not had any nausea or vomiting. PAST MEDICAL AND SURGICAL HISTORY: Remarkable for coronary artery disease as noted. Stent placed back in 2013. He has had a small stroke in the past as well. 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 He has also had bilateral knee replacements, nasal sinus surgery, and history of GERD. 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 FAMILY HISTORY: Positive for heart disease. No lung disease. REVIEW OF SYSTEMS: ROS was done. Note positives as above. He has had some issues with his balance. He cannot recall the details of his fall back in June. Notes it is cloudy, but he does not think he had true loss of consciousness. Does tend toward some lower extremity edema, left greater than right. He also gets burning sensation to right neck, upper chest, right arm area. He has been evaluated by Vascular and Neurosurgery in the past as well. PHYSICAL EXAMINATION: GENERAL APPEARANCE: A man who looks stated age. Alert, cooperative. He is in no acute distress. He is on room air. HEENT: Head is normocephalic and atraumatic. Sclerae are nonicteric. Mucous membranes are moist. I do not appreciate any cervical or supraclavicular adenopathy. HEART: Regular rate. No murmur or gallop is heard. LUNGS: Sounds are clear with excellent air exchange. There is no wheezing heard. No chest wall abnormalities are noted. No subcutaneous emphysema. No CVA tenderness. ABDOMEN: Soft, without appreciable hepatosplenomegaly. There is no guarding, no rebound tenderness. EXTREMITIES: Radial pulses are present. No clubbing. Lower extremities: He may have some trace pretibial edema on the left, even less on the right. No calf tenderness. He has few small varicosities noted. NEUROLOGIC: He is alert and oriented x 3. LABORATORY AND X-RAY FINDINGS: Scans were reviewed. As noted above, he does have a fairly extensive superior mediastinal subcarinal adenopathy. Associated hilar adenopathy, left greater than right. No pleural effusions noted. White blood cell count 13,400, hemoglobin 13.1, hematocrit 39, platelets 213,000. On his chemistry, BUN is 29, creatinine 1.1, potassium is 4.0, total CPK was 80. IMPRESSION: 1. Extensive mediastinal hilar and subcarinal adenopathy. Did not have intra-abdominal adenopathy on CT noted in June. Findings are certainly worrisome for a malignant process. May be a lymphoma. 2. History of coronary artery disease, status post stent placement. 3. Remote history of pulmonary embolism. Off anticoagulation therapy. 4. History of cerebrovascular accident. RECOMMENDATIONS: I reviewed films. Obviously, [place] [address] CONSULTATION Name: PILAR LANTIGUA Room: [address] IN ..#: [id number] Admission: 08/25/19 Attend Phys: Nawaf Cedillo MD Discharge: 08/27/19 Date of : 42 Report #: [id number] EBUS via bronchoscopy is not available at this facility. GI has been asked to see the patient as well. It is possible that they may be able to access this adenopathy and obtain tissue for diagnostic purposes. Also, possible some additional evaluation could be done as an outpatient. He has already been seen by Dr. Villeda from the oncology service. <ELECTRONICALLY SIGNED> By: Odilon Varela MD 08/28/19 0946 0853 0929Celina Schmidt MD /hailee
== END 2019-08-27 12:06 | disposition home or self-care (01) | DRG 178 ==
LOC: M.ERS 08:46 → M.TBA-ER 11:19 → M.2W 11:19
PROVIDERS: Family Medicine; ADMIT Internal Medicine
PROC: 0DB68ZX Excision of Stomach, Via Natural or Artificial Opening Endoscopic, Diagnostic (ICD-10-PCS; principal; 2019-08-26)
PROC: 0D738ZZ Dilation of Lower Esophagus, Via Natural or Artificial Opening Endoscopic (ICD-10-PCS; principal; 2019-08-26)
DX: J15.6 Pneumonia due to other Gram-negative bacteria (principal); R65.10 Systemic inflammatory response syndrome (SIRS) of non-infectious origin without acute organ dysfunction; R59.0 Localized enlarged lymph nodes; Z96.653 Presence of artificial knee joint, bilateral; I25.10 Atherosclerotic heart disease of native coronary artery without angina pectoris; I10 Essential (primary) hypertension; M17.0 Bilateral primary osteoarthritis of knee; E78.5 Hyperlipidemia, unspecified; R13.10 Dysphagia, unspecified; D72.829 Elevated white blood cell count, unspecified; K44.9 Diaphragmatic hernia without obstruction or gangrene; K22.2 Esophageal obstruction; K31.9 Disease of stomach and duodenum, unspecified; Z90.49 Acquired absence of other specified parts of digestive tract; Z95.5 Presence of coronary angioplasty implant and graft; Z86.711 Personal history of pulmonary embolism; Z86.73 Personal history of transient ischemic attack (TIA), and cerebral infarction without residual deficits; Z82.49 Family history of ischemic heart disease and other diseases of the circulatory system

== ENCOUNTER 2020-03-29 09:50 | Emergency (ER) | payer MEDICARE, BC ==
[~2020-03-29] VITALS: Ht 190.5 cm; Wt 91.6 kg
[~2020-03-29 09:50] MED LIST changes: -ACYCLOVIR 400400 MG PO; -COZAAR 25 MG TA25 M1 PO; -MELATONIN5 MG SUBLING
[2020-03-29] MEDS ORDERED: MELATONIN5 MG SUBLING (10:06)
[2020-03-29] MEDS ORDERED: ACYCLOVIR 400400 MG PO (10:06)
[2020-03-29] MEDS ORDERED: COZAAR 25 MG TA25 M1 PO (10:06)
[2020-03-29] MEDS ORDERED: TRAMADOL 50 MG50 MG PO (10:06)
[2020-03-29 10:15] LABS: ABSOLUTE EOSINOPHILS 0.1 thou/uL (0.0-0.7); ABSOLUTE LYMPHOCYTES 0.6 thou/uL (0.8-5.3); ABSOLUTE MONOCYTES 0.4 thou/uL (0.0-1.2); ABSOLUTE NEUTROPHILS 2.6 thou/uL (1.6-8.1); BASOPHILS 0.7 %; EOSINOPHILS 2.6 %; HEMATOCRIT 44.1 % (42.0-52.0); HEMOGLOBIN 15.1 gm/dL (14.0-18.0); LYMPHOCYTES 15.5 %; MCH 31.4 pg (26.0-34.0); MCHC 34.2 g/dL (28.0-37.0); MCV 91.8 fL (80.0-100.0); MONOCYTES 11.6 %; MPV 6.9 fl. (7.2-11.1); NUCLEATED RBCS 0 /100WBC; PLATELET COUNT* 148 thou/uL (150-400); POLYS 69.6 %; RDW-CV 13.4 % (10.5-14.5); WBC 3.8 thou/uL (4.0-11.0)
[2020-03-29 10:22] LABS: CALCIUM 8.9 mg/dL (8.5-10.1); CREATININE 1.1 mg/dL (0.6-1.3); POTASSIUM 4.2 mmol/L (3.5-5.1)
[2020-03-29 10:26] LABS: ALBUMIN 3.9 g/dL (3.4-5.0); TOTAL BILIRUBIN 0.8 mg/dL (<0.1-1.0)
[2020-03-29 10:33] LABS: URINE BILIRUBIN NEGATIVE (Negative); URINE BLOOD NEGATIVE (Negative); URINE CLARITY CLEAR; URINE COLOR YELLOW; URINE GLUCOSE-RANDOM NEGATIVE (Negative); URINE KETONES NEGATIVE (Negative); URINE LEUKOCYTES-REFLEX NEGATIVE (Negative); URINE NITRITE-REFLEX NEGATIVE (Negative); URINE PROTEIN NEGATIVE (Negative); URINE UROBILINOGEN 0.2 E.U./dl (0.2-1.0)
[2020-03-29 13:32] VITALS: BP 154/85
--- NOTE | 2020-03-30 09:01 | EKG ---
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: [facility] : 1940 Requested By: Jose L Simpson Order Number: [id number] MD: Turner Berman Measurements Intervals [place] Rate: 70 P: 72 NC: 172 QRS: -24 QRSD: 105 T: 73 QT: 435 QTc: 470 Interpretive Statements Sinus rhythm ventricular premature complexes Borderline left axis deviation Anterior infarct, old Compared to ECG 08/26/2019 00:07:58 Ventricular premature complex(es) now present Sinus tachycardia no longer present Myocardial infarct finding still present Electronically Signed On 03-30-2020 9:00:18 CDT by Turner Berman [email or web address] <ELECTRONICALLY SIGNED> By: Turner Berman MD, [facility] 03/30/20 0900 1010 1010 Turner Berman MD, [facility] /EPI
== END 2020-03-29 13:32 | disposition home or self-care (01) ==
LOC: M.ERS 09:50
PROVIDERS: Emergency Medicine
DX: K59.00 Constipation, unspecified (principal); M54.5 Low back pain; I25.10 Atherosclerotic heart disease of native coronary artery without angina pectoris; I10 Essential (primary) hypertension; Z79.82 Long term (current) use of aspirin; Z79.899 Other long term (current) drug therapy; Z90.49 Acquired absence of other specified parts of digestive tract; Z96.653 Presence of artificial knee joint, bilateral

== ENCOUNTER → 2020-03-29 | Outpatient (CLI) | payer MEDICARE, BC ==
[~2020-03-29] MED LIST changes: +ACYCLOVIR 400400 MG PO; +CARAFATE1 GM PO; +CEFDINIR300 MG PO; +COZAAR 25 MG TA25 M1 PO; +IBU800 MG PO; +MELATONIN5 MG SUBLING; +PRILOSEC OTC20 MG PO
--- NOTE | 2020-03-29 13:03 | 2DMMODE ---
[place] [address] 2 D/M-MODE ECHOCARDIOGRAM Name: [address] Room: [facility]#: [id number] Admission: 03/29/20 Attend Phys: Turner Berman MD Discharge: Date of : 44 Date of Service: 03/29/20 1302 Report #: [id number] THIS REPORT FOR: cc: FAM - No family physician/PCP FAM - No family physician/PCP Turner Berman MD [facility] ~ APPROVED REPORT Study performed: 03/29/2020 08:56:51 EXAM: Comprehensive 2D, Doppler, and color-flow Echocardiogram Patient Location: Out-Patient BSA: 2.14 HR: 74 bpm BP: 142/84 mmHg Other Information Study Quality: Good Indications Dyspnea 2D Dimensions IVSd: 11.40 (7-11mm) LVOT Diam: 20.63 (18-24mm) LVDd: 47.09 mm PWd: 11.94 (7-11mm) Ascending Ao: 32.93 (22-36mm) LVDs: 36.70 (25-40mm) Aortic Root: 26.21 mm Volumes Left Atrial Volume (Systole) LA ESV Index: 15.00 mL/m2 Aortic Valve AoV Peak Nazario.: 1.08 m/s AO Peak Gr.: 4.63 mmHg LVOT Max P.42 mmHg AO Mean Gr.: 2.79 mmHg LVOT Mean P.31 mmHg LVOT Max V: 0.78 m/s AO V2 VTI: 22.38 cm LVOT Mean V: 0.54 m/s LETICIA (VTI): 2.70 cm2 LVOT V1 VTI: 18.05 cm Mitral Valve E/A Ratio: 0.61 [place] [address] 2 D/M-MODE ECHOCARDIOGRAM Name: PILAR LANTIGUA Room: [facility]#: [id number] Admission: 03/29/20 Attend Phys: Turner Berman MD Discharge: Date of : 44 Date of Service: 03/29/20 1302 Report #: [id number] MV Decel. Time: 317.01 ms MV E Max Nazario.: 0.54 m/s MV PHT: 91.93 ms MVA (PHT): 2.39 cm2 TDI E/Lateral E': 9.00 E/Medial E': 10.80 Medial E' Nazario.: 0.05 m/s Lateral E' Nazario.: 0.06 m/s Pulmonary Valve PV Peak Nazario.: 0.85 m/s PV Peak Gr.: 2.89 mmHg Tricuspid Valve RAP Estimate: 5.00 mmHg TR Peak Gr.: 21.23 mmHg RVSP: 26.23 mmHg PA Pressure: 26.23 mmHg Left Ventricle The left ventricle is normal size. There is normal LV segmental wall motion. Mild concentric left ventricular hypertrophy. Left ventricular systolic function is borderline. LVEF is 50-55%. Grade I - abnormal relaxation pattern. Right Ventricle The right ventricle is normal size. The right ventricular systolic function is normal. Atria The left atrium size is normal. The right atrium size is normal. Aortic Valve Mild aortic valve sclerosis. No aortic regurgitation is present. There is no aortic valvular stenosis. Mitral Valve The mitral valve is normal in structure. Mild mitral regurgitation. No evidence of mitral valve stenosis. Tricuspid Valve The tricuspid valve is normal in structure. Mild tricuspid regurgitation. Pulmonic Valve Pulmonic valve is not well visualized. There is no [place] [address] 2 D/M-MODE ECHOCARDIOGRAM Name: PILAR LANTIGUA Room: [facility]#: [id number] Admission: 03/29/20 Attend Phys: Turner Berman MD Discharge: Date of : 44 Date of Service: 03/29/20 1302 Report #: [id number] regurgitation. Great Vessels The aortic root is normal in size. IVC is normal in size and collapses >50% with inspiration. Pericardium There is no pericardial effusion. <Conclusion> Mild concentric left ventricular hypertrophy. LVEF is 50-55%. Mild aortic valve sclerosis. Mild mitral regurgitation. <ELECTRONICALLY SIGNED> By: Turner Berman MD, FACC 03/29/20 130 01 01 Turner Berman MD, FAC /INF
== END ==
LOC: M.CRD 09:00
PROVIDERS: ATTEND Internal Medicine Cardiovascular Disease
DX: I08.3 Combined rheumatic disorders of mitral, aortic and tricuspid valves (principal)

== ENCOUNTER → 2020-10-25 | Outpatient (CLI) | payer MEDICARE, BC ==
[~2020-10-25] MED LIST changes: +ACETAMINOPHEN325 M1 PO; +ACYCLOVIR 400400 MG PO; +COZAAR 25 MG TA25 M1 PO; +FERREX 150 PLU1 EAC1 PO; +HEPARIN SO1000 UNIT/ IVPUSH; +LIPITOR40 MG PO; +MELATONIN5 MG SUBLING; +METOPROLOL TART25 MG PO; +MUCINEX600 MG PO; +PACERONE 200 M200 M1 PO; +TYLENOL EXTRA500 MG PO
--- NOTE | 2020-10-25 19:45 | PF ---
[address] [address] PULMONARY FUNCTION REPORT Name: PILAR LANTIGUA Room: [facility]#: [id number] Admission: 10/25/20 Attend Phys: Umair Villeda MD Discharge: Date of : 44 Report #: [id number] THIS REPORT FOR: cc: FAM - No family physician/PCP FAM - No family physician/PCP ~ Ayden Mendosa MD DATE OF SERVICE: 10/25/2020 STUDY: The FEV1/FVC ratio is decreased to 60% with an FVC normal at 95% and FEV1 normal at 80%. The AIU65-57 is also decreased to 49%. The total lung capacity is normal at 100% and the residual volume is normal at 105%. The DLCO as adjusted for hemoglobin is normal at 94%. There is no significant change in any of these values after the administration of a bronchodilator. The patient's post-bronchodilator FEV1 is noted to be 2.90 liters. The patient's flow volume loop is concave upwards. IMPRESSION: 1. Mild obstruction without evidence of reversibility. 2. Lung volumes are normal. 3. Normal DLCO. <ELECTRONICALLY SIGNED> By: Ayden Mendosa MD 10/25/20 1945 12 1917Aelisabeth Mendosa MD /nt
== END ==
LOC: M.PUL 09:01
PROVIDERS: ATTEND Internal Medicine Hematology & Oncology
DX: C83.30 Diffuse large B-cell lymphoma, unspecified site (principal); R05 Cough; R07.9 Chest pain, unspecified; J98.4 Other disorders of lung

== ENCOUNTER 2020-11-03 20:16 | Inpatient (IN) | payer MEDICARE, BC ==
[~2020-11-03] VITALS: Ht 188 cm; Wt 96.2 kg
--- NOTE | ~2020-11-03 | EMS ---
[place] [address] EMS Patient Care Report Name: PILAR LANTIGUA Room: [facility]#: [id number] Admission: 11/03/20 Attend Phys: Discharge: Date of : 44 Report #: [id number] THIS REPORT FOR: //name// Report Transmitted: 11/03/2020 20:21 EMS Care Summary [facility] Incident [id number] @ 11/03/2020 19:02 Incident Location [address] [place] [address] Patient PILAR LANTIGUA Male, 80 Years 1940 Patient Address [address] [place] [address] Patient History Cancer, Unspecified,Lung Cancer,Cardiac - Stent, Patient Allergies No known allergies, Patient Medications Losartan, Tramadol, Gabapentin, Atorvastatin, Acyclovir, Chief Complaint CP Disposition Transported No Lights/[place] Dispatch Reason Chest Pain (Non-Traumatic) Transported To [facility] Narrative Dispatch: Med 1 responded to the above residence for pt with CP. C/C: CP; pt was alert/oriented appropriately. Pt was not in distress. No apparent life threats. Pt is [place] [address] EMS Patient Care Report Name: PILAR LANTIGUA Room: [facility]#: [id number] Admission: 11/03/20 Attend Phys: Discharge: Date of : 44 Report #: [id number] HPI/ADONIS/JUAN: Upon EMS arrival pt was found sitting upright in chair at kitchen table. Pt stated onset of CP around 1700. Pt states he was exerting himself. Pain is on left side of chest; non radiating. Pt self administered nitro prior to EMS arrival last dose taken at approx 1905; pt rates his pain 2/10 on numeric pain scale. Pt states he had previous stent placed; unknown year/time. Pt denies any other symptoms/complaints at this time. Pt placed on cafeteria monitor; evaluation performed. Findings within normal limits. Pt assisted to cot; secured via seat belt straps; semi garcia position. Once loaded further assessment performed. Assessment: Primary Airway- Open, Patent Breathing- Non Labored, Regular, RA Circulation- Strong, Radial, Regular LOC: GCS 15; A/O x 4, PPTE See detailed assessment per Pt PCR for further information. Reason for transport: CP; medical attending required. Treatment: surgical mask application, Assessment, Vitals including BG/Temp, Medication administration, cafeteria monitor, 12 Lead/Rt. Sided/15 Lead performed, IV access established, Transport. Summary of Call: Pt transported to [place] per pt request. Pt condition remained stable with no ECG changes during transport. Radio report given 20 mins prior to ED arrival. Verbal report given bedside; ED Bed 17 with copy of ECG's, list of current medications, to receiving RN. EOR F. Murillo [id number] Initial Vitals @19:24R: 20,Pain: 2/10,GCS: 15,SpO2: 96,DC Suspected: false @19:52P: 100,R: 20,BP: 140/88,Pain: 0/10,GCS: 15,SpO2: 95,Revised Trauma: 12,DC Suspected: false @19:48P: 101,R: 18,BP: 164/98,Pain: 2/10,GCS: 15,SpO2: 96,Revised Trauma: 12, @19:20P: 87,R: 20,BP: 124/80,Pain: 2/10,GCS: 15,Temp: 98.7F,Glucose: 175,SpO2: 96,Revised Trauma: 12,DC Suspected: false @20:13P: 95,R: 18,Pain: 0/10,GCS: 15,SpO2: 96,DC Suspected: false @19:22P: 98,R: 20,Pain: 2/10,GCS: 15,SpO2: 94,DC Suspected: false Assessments @19:31MENTAL:Person Oriented,Time Oriented,Event Oriented,Place Oriented,SKIN:HEENT:LUNG SOUNDS:ABDOMEN:PELVIS//GI:EXTREMITIES:Capillary Refill: Right Upper: < 2 Sec,PULSE:Radial: 2+ Normal,NEURO:@20:10MENTAL:[place] [address] EMS Patient Care Report Name: PILAR LANTIGUA Room: [facility]#: [id number] Admission: 11/03/20 Attend Phys: Discharge: Date of : 44 Report #: [id number] Oriented,Person Oriented,Event Oriented,Time Oriented,SKIN:HEENT:Head/Face: No Abnormalities,Neck/Airway: No Abnormalities,LUNG SOUNDS:General: No Abnormalities,ABDOMEN:General: No Abnormalities,PELVIS//GI:EXTREMITIES:PULSE:Radial: 2+ Normal,NEURO:No Abnormalities, Impression Chest Pain / Discomfort Procedures @19:31Normal Saline (.9% NaCl) 10cc (20 ga) Site: Forearm-LeftResponse: UnchangedSucceeded@19:13ALS AssessmentResponse: UnchangedSucceeded@PTASurgical Mask on PatientResponse: Unchanged@19:1912-Lead ECGResponse: UnchangedSucceeded@19:2112-Lead ECGResponse: UnchangedSucceeded@19:5212-Lead ECGResponse: UnchangedSucceeded@19:15Aspirin - 324 Milligrams (mg) - OralResponse: Unchanged@19:1712-Lead ECGResponse: UnchangedSucceeded Timeline CASH APPLICATIONS ANALYST,Surgical Mask on Patient,Response: Unchanged 19:02,Call Received 19:02,Dispatched 19:04,En Route 19:13,On Scene 19:13,At Patient 19:13,ALS Assessment,Response: UnchangedSucceeded, 19:15,Aspirin - 324 Milligrams (mg) - Oral,Response: Unchanged 19:17,12-Lead ECG,Response: UnchangedSucceeded, 19:19,12-Lead ECG,Response: UnchangedSucceeded, 19:20,BP: 124/80 M,PULSE: 87,RR: 20 R,SPO2: 96 Ox,ETCO2: ,B,PAIN: 2,GCS: 15, 19:21,12-Lead ECG,Response: UnchangedSucceeded, 19:22,BP: / M,PULSE: 98,RR: 20 R,SPO2: 94 Ox,ETCO2: ,BG: ,PAIN: 2,GCS: 15, 19:24,BP: / M,PULSE: ,RR: 20 R,SPO2: 96 Ox,ETCO2: ,BG: ,PAIN: 2,GCS: 15, 19:31,Depart Scene 19:31,Normal Saline (.9% NaCl) 10cc 20 ga Site: Forearm-Left,Response: UnchangedSucceeded, 19:48,BP: 164/98 M,PULSE: 101,RR: 18 R,SPO2: 96 Ox,ETCO2: ,BG: ,PAIN: 2,GCS: 15, 19:52,12-Lead ECG,Response: UnchangedSucceeded, 19:52,BP: 140/88 M,PULSE: 100,RR: 20 R,SPO2: 95 Ox,ETCO2: ,BG: ,PAIN: 0,GCS: 15, 20:13,BP: / M,PULSE: 95,RR: 18 R,SPO2: 96 Ox,ETCO2: ,BG: ,PAIN: 0,GCS: 15, 20:14,At Destination 20:29,[place] [address] EMS Patient Care Report Name: PILAR LANTIGUA Room: [facility]#: [id number] Admission: 11/03/20 Attend Phys: Discharge: Date of : 44 Report #: [id number] v1.1 Copyright 2020 [employer] This EMS Care Summary contains data elements from the applicable legal record (which may be displayed differently). It is designed to provide pertinent information for the following purposes: continuity of care, clinical quality, and state data reporting. The complete legal record is available to ED staff and administrators of the receiving hospital in [employer] Patient Tracker. All data is provided "as is."
[~2020-11-03 20:16] MED LIST changes: -ACETAMINOPHEN325 M1 PO; -FERREX 150 PLU1 EAC1 PO; -HEPARIN SO1000 UNIT/ IVPUSH; -LIPITOR40 MG PO; -METOPROLOL TART25 MG PO; -MUCINEX600 MG PO; -PACERONE 200 M200 M1 PO; -TYLENOL EXTRA500 MG PO
[2020-11-03 20:20] VITALS: BP 160/82
[2020-11-03 21:01] LABS: ABSOLUTE EOSINOPHILS 0.1 thou/uL (0.0-0.7); ABSOLUTE MONOCYTES 0.4 thou/uL (0.0-1.2); ABSOLUTE NEUTROPHILS 3.8 thou/uL (1.6-8.1); BASOPHILS 0.7 %; EOSINOPHILS 2.4 %; HEMOGLOBIN 14.2 gm/dL (14.0-18.0); LYMPHOCYTES 17.7 %; MCH 30.7 pg (26.0-34.0); MCHC 33.8 g/dL (28.0-37.0); MCV 90.9 fL (80.0-100.0); MONOCYTES 8.3 %; MPV 6.8 fl. (7.2-11.1); NUCLEATED RBCS 0 /100WBC; PLATELET COUNT* 143 thou/uL (150-400); POLYS 70.9 %; RBC 4.62 mil/uL (4.50-6.00); RDW-CV 14.6 % (10.5-14.5); WBC 5.4 thou/uL (4.0-11.0)
[2020-11-03 21:11] LABS: PROTIME 10.9 Seconds (9.20-11.50)
[2020-11-03 21:21] LABS: CREATININE 1.6 mg/dL (0.6-1.3); POTASSIUM 4.7 mmol/L (3.5-5.1)
[2020-11-03 21:32] LABS: ALBUMIN 3.9 g/dL (3.4-5.0); TOTAL BILIRUBIN 0.4 mg/dL (<0.1-1.0); TOTAL PROTEIN 6.9 g/dL (6.4-8.2)
[2020-11-04 01:06] LABS: URINE BILIRUBIN NEGATIVE (Negative); URINE BLOOD NEGATIVE (Negative); URINE CLARITY CLEAR; URINE COLOR YELLOW; URINE GLUCOSE-RANDOM NEGATIVE (Negative); URINE KETONES NEGATIVE (Negative); URINE LEUKOCYTES-REFLEX NEGATIVE (Negative); URINE NITRITE-REFLEX NEGATIVE (Negative); URINE PROTEIN NEGATIVE (Negative); URINE UROBILINOGEN 0.2 E.U./dl (0.2-1.0)
[2020-11-04 07:30] VITALS: BP 144/67
[2020-11-04 11:00] VITALS: BP 162/86
[2020-11-04 11:30] VITALS: BP 152/84
[2020-11-04 12:00] VITALS: BP 152/84
--- NOTE | 2020-11-04 12:20 | NUR ---
ER PATIENT TO 207 TELEPHONE REPORT GIVEN PRIOR TO ARRIVAL PATIENT TO VIA BED ORIENTED TO AND CALL LIGHT PATIENT DENIES PAIN
--- NOTE | 2020-11-04 14:37 | EKG ---
[place] [address] ELECTROCARDIOGRAM REPORT Name: PILAR LANTIGUA Room: [address] ADM IN [facility]#: [id number] Admission: 11/04/20 Attend Phys: Juanita Brito, Discharge: Date of : 44 Date of Service: 11/03/202023 Report #: [id number] THIS REPORT FOR: //name// [facility] ED Test Date: 2020-11-03 Test Time: 20:24:46 Pat Name: PILAR LANTIGUA Department: Room: [facility] Gender: M Van Driver: ROJELIO : 1940 Requested By: Yamile Bellamy Order Number: [id number] MD: Turner Berman Measurements Intervals [place] Rate: 90 P: 51 NE: 194 QRS: -25 QRSD: 108 T: 102 QT: 397 QTc: 486 Interpretive Statements Sinus rhythm poor r wave progression Borderline left axis deviation Borderline repolarization abnormality Borderline prolonged QT interval Baseline wander in lead(s) I,II,aVR Compared to ECG 03/29/2020 10:10:43 Ventricular premature complex(es) no longer present Electronically Signed On 11-04-2020 14:37:31 DINKEY MOTOR OPERATOR by Turner Berman [email or web address] <ELECTRONICALLY SIGNED> By: Turner Berman MD, [facility] 11/04/20 1437 23 23 Turner Berman MD, [facility] /EPI
--- NOTE | 2020-11-04 14:38 | EKG ---
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 : 1940 Requested By: Yamile Bellamy Order Number: [id number] Sindhu MD: Turner Berman Measurements Intervals [place] Rate: 95 P: 70 AK: 130 QRS: -31 QRSD: 105 T: 132 QT: 381 QTc: 479 Interpretive Statements Sinus rhythm Left axis deviation septal infarct, old Repol abnrm suggests ischemia, diffuse leads Compared to ECG 11/03/2020 20:24:46 Possible ischemia now present Electronically Signed On 11-04-2020 14:38:42 LEAD WEB DEVELOPER by Turner Berman [email or web address] <ELECTRONICALLY SIGNED> By: Turner Berman MD, FACC 11/04/20 1438 0238 Turner Berman MD, FAC /EPI
--- NOTE | 2020-11-04 17:30 | CARDNUC ---
[place] [address] CARDIAC NUCLEAR IMAGING REPORT Name: PILAR LANTIGUA Room: [address] IN [facility]#: [id number] Admission: 11/04/20 Attend Phys: Juanita Brito, Discharge: Date of : 44 Date of Service: 11/04/20 1730 Report #: [id number] THIS REPORT FOR: cc: FAM - No family physician/PCP FAM - No family physician/PCP Harshil Crane MD [facility] ~ APPROVED REPORT Study performed: 11/04/2020 13:15:00 Indication: Chest pain Patient Location: In-Patient Room #: 207 Stress Tech: Katerina Mann Stress Nurse: Casie Varghese RN Ht: 6 ft 2 in Wt: 211 lbs BSA: 2.22 m2 BMI: 27.08 Medical History Medical History: CAD s/p NE, CAD s/p stent, HTN, Stroke/TIA Medications: asa-81, atorvastatin, losartan Allergies: No known drug allergies Cardiac Risk Factors: Age, Hyperlipidemia Previous Cardiac Procedures: PCI, Myocardial infarction Exercise History: Indeterminate Resting Data Rest SPECT myocardial perfusion imaging was performed in supine position 30 minutes following the intravenous injection of 10.8 mCi of Tc-99m Sestamibi. Time of rest injection: 1440 The images were gated to evaluate regional wall motion and calculate left ventricular ejection fraction. Administration Route: IV Administration Site: Left Arm Pharmacologic Stress Pharmacologic stress test was performed by injecting Regadenoson 0.4 mg IV push over 10-15 seconds immediately followed by the intravenous injection of 33.0 mCi of Tc-99m Sestamibi. Time of stress injection: 1555 Administration Route: [place] [address] CARDIAC NUCLEAR IMAGING REPORT Name: PILAR LANTIGUA Room: [address]#: [id number] Admission: 11/04/20 Attend Phys: Juanita Brito, Discharge: Date of : 44 Date of Service: 11/04/20 1730 Report #: [id number] Administration Site: Left Arm Heart Rate at time of stress injection: 110 bpm. Gated Stress SPECT was performed 45 minutes after stress injection. The images were gated to evaluate regional wall motion and calculate left ventricular ejection fraction. Stress Test Details Stress Test: Pharmacologic stress testing performed using 0.4 mg of regadenoson per 5 mL given IV over 10 seconds. Reason for pharmacologic stress test: physical limitation. HR Max Heart Rate (APMHR): 142 bpm Resting HR: 79 bpm Target HR (85% APMHR): 120 bpm Max HR Achieved: 117 bpm % of APMHR: 82 Recovery HR: 104 bpm BP Resting BP: 126/86 mmHg Max BP: 146/84 mmHg Recovery BP: 140/86 mmHg ECG Resting ECG: Sinus Rhythm Stress ECG: Sinus Tachycardia ST Change: None Arrhythmia: None Recovery ECG: Sinus Rhythm Recovery ST Change: None Recovery Arrhythmia: None Clinical Reason for Termination: Completed protocol Nurse Comments pt on bedrest with nurse assist. unable to walk on treadmill caffeine 60 mg ivp given for reversal due to stomach pains after test. pains resolved Study Quality Study: Good Artifact: Mild [place]aphragm[place] [address] CARDIAC NUCLEAR IMAGING REPORT Name: PILAR LANTIGUA Room: [address] IN [facility]#: [id number] Admission: 11/04/20 Attend Phys: Juanita Brito, Discharge: Date of : 44 Date of Service: 11/04/20 1730 Report #: [id number] At rest, the left ventricular ejection fraction was 52%.. Post stress, the left ventricular ejection was 41%.. TID = 1.02. Perfusion Perfusion images show mild photopenia in the inferior wall on supine imaging that resolves with prone imaging suggesting diaphragmatic attenuation artifact. Additionally there is a moderate sized moderate to severe intensity reversible defect involving the mid lateral wall. Wall Motion Inferior and septal wall motion abnormality noted. Normal left ventricular wall motion. Nuclear Conclusion ECG Findings: negative for ischemia Clinical Findings: negative for ischemia Nuclear Findings: positive for ischemia Exercise Capacity: not assessed Left Ventricular Function: abnormal Risk Study: high Perfusion study suggest a moderate region of ischemia in the mid lateral wall. LV systolic function appears mildly decreased. There are wall motion abnormalities as noted above. This is a high risk study. <ELECTRONICALLY SIGNED> By: Harshil Crane MD, FACC 11/04/20 1730 1730 173 Harshil Crane MD, FACC /INF
--- NOTE | 2020-11-04 17:35 | 2DMMODE ---
[place] [address] 2 D/M-MODE ECHOCARDIOGRAM Name: PILAR LANTIGUA Room: [address] IN [place].#: [id number] Admission: 11/04/20 Attend Phys: Juanita Brito, Discharge: Date of : 44 Date of Service: 11/04/20 1735 Report #: [id number] THIS REPORT FOR: cc: FAM - No family physician/PCP FAM - No family physician/PCP Turner Berman MD [facility] ~ APPROVED REPORT Study performed: 11/04/2020 14:59:23 EXAM: Comprehensive 2D, Doppler, and color-flow Echocardiogram Patient Location: In-Patient Room #: 207 Status: routine BSA: 2.22 HR: 75 bpm BP: 152/84 mmHg Rhythm: NSR Other Information Study Quality: Good Indications Chest Pain 2D Dimensions IVSd: 13.33 (7-11mm) LVOT Diam: 21.50 (18-24mm) LVDd: 49.64 mm PWd: 12.54 (7-11mm) Ascending Ao: 28.54 (22-36mm) LVDs: 33.32 (25-40mm) Aortic Root: 31.71 mm Volumes Left Atrial Volume (Systole) LA ESV Index: 42.10 mL/m2 Aortic Valve AoV Peak Nazario.: 1.27 m/s AO Peak Gr.: 6.46 mmHg LVOT Max P.41 mmHg AO Mean Gr.: 3.57 mmHg LVOT Mean P.42 mmHg LVOT Max V: 0.78 m/s AO V2 VTI: 26.73 cm LVOT Mean V: 0.56 m/s LETICIA (VTI): 2.51 cm2 LVOT V1 VTI: 18.46 [place] [address] 2 D/M-MODE ECHOCARDIOGRAM Name: PILAR LANTIGUA Room: [address]#: [id number] Admission: 11/04/20 Attend Phys: Juanita Brito, Discharge: Date of : 44 Date of Service: 11/04/20 1735 Report #: [id number] Mitral Valve E/A Ratio: 0.60 MV Decel. Time: 263.14 ms MV E Max Nazario.: 0.62 m/s MV PHT: 76.31 ms MVA (PHT): 2.88 cm2 TDI E/Lateral E': 6.89 E/Medial E': 12.40 Medial E' Nazario.: 0.05 m/s Lateral E' Nazario.: 0.09 m/s Pulmonary Valve PV Peak Nazario.: 0.87 m/s PV Peak Gr.: 3.05 mmHg Tricuspid Valve RAP Estimate: 5.00 mmHg TR Peak Gr.: 22.18 mmHg RVSP: 27.00 mmHg PA Pressure: 27.00 mmHg Left Ventricle The left ventricle is normal size. severe hypokinesis of the distal septum and apex There is normal left ventricular wall thickness. Left ventricular systolic function is mildly decreased. LVEF is 45-50%. Grade I - abnormal relaxation pattern. Right Ventricle The right ventricle is normal size. The right ventricular systolic function is normal. Atria Left atrium is mild to moderately dilated. The right atrium size is normal. Aortic Valve The aortic valve is normal in structure. No aortic regurgitation is present. There is no aortic valvular stenosis. Mitral Valve The mitral valve is normal in structure. Mild mitral regurgitation. No evidence of mitral valve stenosis. Tricuspid Valve The tricuspid valve is normal in structure. Trace tricuspid regurgitation. [place] [address] 2 D/M-MODE ECHOCARDIOGRAM Name: PILAR LANTIGUA Room: [address] IN [facility]#: [id number] Admission: 11/04/20 Attend Phys: Juanita Brito, Discharge: Date of : 44 Date of Service: 11/04/20 1735 Report #: [id number] Pulmonic Valve Pulmonic valve is not well visualized. There is no pulmonic valvular regurgitation. Great Vessels The aortic root is normal in size. IVC is normal in size and collapses >50% with inspiration. Pericardium There is no pericardial effusion. <Conclusion> LVEF is 45-50%. severe hypokinesis of the distal septum and apex Left atrium is mild to moderately dilated. Mild mitral regurgitation. <ELECTRONICALLY SIGNED> By: Turner Berman MD, FACC 11/04/20 1735 1735 1735 Turner Berman MD, FACC /INF
[2020-11-04 20:19] VITALS: BP 138/75
[2020-11-05] VITALS (17 sets, daily range): BP systolic 96–168; BP diastolic 49–93
[2020-11-05 02:09] LABS: GLYCOHEMOGLOBIN (HGB A1C) 6.7 % (4.8-5.6)
[2020-11-05 04:14] LABS: HEMATOCRIT 40.1 % (42.0-52.0); HEMOGLOBIN 13.6 gm/dL (14.0-18.0); MCH 30.4 pg (26.0-34.0); MCHC 33.9 g/dL (28.0-37.0); MCV 89.5 fL (80.0-100.0); MPV 6.9 fl. (7.2-11.1); RBC 4.48 mil/uL (4.50-6.00); RDW-CV 14.3 % (10.5-14.5); WBC 4.8 thou/uL (4.0-11.0)
[2020-11-05 04:22] LABS: ANION GAP 7 mmol/L (7-16); BUN 18 mg/dL (7-18); CHLORIDE 107 mmol/L (98-107); CHOLESTEROL 109 mg/dL (<200); CO2 28 mmol/L (21-32); GLUCOSE 115 mg/dL (70-99); HDL CHOLESTEROL 37 mg/dL (>40); LDL CHOLESTEROL 58 mg/dL (<100); MAGNESIUM 1.8 mg/dL (1.8-2.4); POTASSIUM 4.2 mmol/L (3.5-5.1); SODIUM 142 mmol/L (136-145); TC:HDL 2.9 Ratio (Not establshd); TRIGLYCERIDE 73 mg/dL (<150); VLDL 15 mg/dL (<40)
[2020-11-05 04:57] LABS: SERUM ASSESSMENT CLEAR
--- NOTE | 2020-11-05 05:23 | NUR ---
PT IS ABLE TO COMMUNICATE HIS NEEDS TO STAFF EFFECTIVELY. HE HAS DENIED THE NEED FOR PAIN MEDICATION UP TO THIS TIME. PT HAS BEEN NPO SINCE MIDNIGHT FOR A POSSIBLE CARDIAC CATH LATER THIS MORNING.
--- NOTE | 2020-11-05 12:56 | CARD ---
[address] [address] CARDIAC CATH REPORT Name: RHINAPILAR A Room: [address] IN [facility]#: [id number] Admission: 11/04/20 Attend Phys: Juanita Brito MD Discharge: Date of : 44 Report #: [id number] THIS REPORT FOR: cc: FAM - No family physician/PCP FAM - No family physician/PCP ~ Turner Berman MD [facility] APPROVED REPORT Study performed: 11/05/2020 08:20:08 Patient Details Patient Status: In-Patient Room #: The patient is a 80 year-old male Event Personnel Turner Berman Human Resource Adviser, Olivia Ramirez RN Bar Porter, Jp Cardenas CNA INSTRUCTOR Monitor, Dianelys Washburn RTR Scrub Procedures Performed Art Access - R radial artery Left Heart Cath w/or w/o Coronaries [id number] [facility] Indication Chest pain Risk Factors Hypercholesterolemia, Coronary Artery DiseaseHypertension Previous Procedures/Diagnoses Previous PCI Admission/Lab Medications/Medications given during procedure Heparin Unfract. Procedure Narrative The patient was brought electively to the Cardiac Catheterization Laboratory and was prepped and draped in a sterile manner. The right wrist was infiltrated with 2% Lidocaine subcutaneous anesthesia. A Slender Glidesheath sheath was inserted into the right radial artery. Coronary angiography was performed using coronary diagnostic catheters. The right coronary system was accessed and visualized with a 3DRC catheter. The left coronary system was accessed and visualized with a JL4 catheter. The left ventricle was accessed and visualized with a Pig Tail catheter. Left ventricular/Aortic Valve gradient [address] [address] CARDIAC CATH REPORT Name: PILAR LANTIGUA Room: [address]#: [id number] Admission: 11/04/20 Attend Phys: Juanita Brito MD Discharge: Date of : 44 Report #: [id number] assessed via catheter pullback. Left ventriculogram was performed in PATEL projection. Closure device was deployed with a 6 Fr vascband. The patient tolerated the procedure well and there were no complications associated with the procedure. There was no hematoma. RCA had a superior and anterior takeoff from the right coronary cusp. Cannulating the coronary was difficult. Unable to cannulate the RCA with neither the JR4 nor right modified amplatz catheter. RCA was visualized with a right coronary cusp injection using the 3DRC catheter. Intraoperative Conscious Sedation Sedation start time: 920 Case end Time: 948 Fluoro Time: 6.3 minutes Dose: DAP 21098 cGycm2 1182 mGy Contrast Type and Amount: Omnipaque 150 ml Coronary Angiography The patient's coronary anatomy is co- dominant. Diagnostic Cath Left Main 95% distal LAD no significant stenosis Circumflex 90% ostial stenosis. 40% mid stenosis OM3 small artery with a 90% proximal stenosis Right Coronary There appearred to be a 90% ostial stenosis of the RCA. There was no significant restenosis of stents in the proximal and distal RCA Left Ventriculography The left ventricular ejection fraction is estimated to be 45-50%. Left ventricular wall motion abnormalities are present. There is no mitral insufficiency. mild hypokinesis noted of the anteroapical wall. Hemodynamics The aortic pressure is 127/70 mmHg with a mean of 74 mmHg. The left ventricular pressure is 136/10 mmHg with a mean of mmHg. The left ventricular end diastolic pressure is 25 mmHg. There was no gradient across the aortic valve upon pullback. Pullback from the left ventricle to the aorta revealed no gradient across the aortic valve. Conclusion 1. 95% stenosis of the [place] [address] CARDIAC CATH REPORT Name: PILAR LANTIGUA Room: [address] IN [facility]#: [id number] Admission: 11/04/20 Attend Phys: Juanita Brito MD Discharge: Date of : 44 Report #: [id number] 2. 90% ostial stenosis of the circumflex artery. 3. Appearred to be a 90% ostial stenosis of the RCA. Stents in the proximal and distal RCA had no significant restenosis. 4. LVEF 40-45% Recommendations CABG <ELECTRONICALLY SIGNED> By: Turner Berman MD, [facility] 11/05/20 2138 1256 1256Dareggie Berman MD, [facility] /INF
--- NOTE | 2020-11-05 13:09 | CON ---
[address] [address] CONSULTATION Name: PILAR LANTIGUA Room: [address] IN M.R.#: [id number] Admission: 11/04/20 Attend Phys: Juanita Brito MD Discharge: Date of : 44 Report #: [id number] THIS REPORT FOR: cc: FAM - No family physician/PCP FAM - No family physician/PCP ~ Turner Berman MD [facility] DATE OF SERVICE: 11/04/2020 CARDIOLOGY CONSULTATION HISTORY OF PRESENT ILLNESS: The patient is a 80-year-old white male who I was asked to see in the hospital today after he complained of chest pain. The patient has an extensive past medical history. He apparently presented back in 2013 with chest pressure. He had 2 coronary stents placed here at [facility] by Dr. Pérez. Two years ago, he was diagnosed with non-Hodgkin's lymphoma that showed up on the CT scan. He was treated with chemotherapy at . His last chemotherapy was last January. He has been doing well recently. However, for the past several weeks, he has been having intermittent pain on the left side of his chest. It is not related to exertion or meals. It is a soreness There is no radiation. I do not think has short of breath, diaphoresis, or nausea. When he notes that he will sit down and it gradually resolves. Yesterday at home, again felt a pain in his left breast. He called EMS and brought here to [facility] and admitted for further evaluation and treatment. His last dobutamine stress test 2018 showed no ischemia. Echocardiogram last year showed an ejection fraction of 50%. He denies exertional dyspnea. He notes occasional skipped heartbeat, but no syncope, fever, cough, bleeding. PAST MEDICAL HISTORY: He apparently had a previous stroke in the past affecting his right side. He has a history of a cholecystectomy, hernia repair, knee replacement, tonsillectomy, hypertension, hyperlipidemia. MEDICATIONS: Include aspirin, Lipitor, Neurontin, losartan, and omeprazole. ALLERGIES: He has no known drug allergies. FAMILY HISTORY: His mother and father both had heart disease. SOCIAL HISTORY: He is . He and his live in [place], [place]. 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 No smoking or alcohol abuse. REVIEW OF SYSTEMS: He has had no history of asthma, liver disease, kidney disease, chronic skin condition or psychiatric illness. PHYSICAL EXAMINATION: [place] [address] CONSULTATION Name: [address] Room: [address]#: [id number] Admission: 11/04/20 Attend Phys: Juanita Brito MD Discharge: Date of : 44 Report #: [id number] GENERAL: Elderly male, who appeared in no distress, lying in bed. VITAL SIGNS: Blood pressure 140/70, pulse 70, he was afebrile. HEENT: He was anicteric. Conjunctivae pink. Mucous membranes moist. NECK: Veins nondistended. Neck supple. CHEST: Clear to auscultation. CARDIOVASCULAR: Regular rate and rhythm without rub. ABDOMEN: Soft. EXTREMITIES: Had no edema. SKIN: Cool and dry. NEUROLOGIC: Nonfocal. DIAGNOSTIC STUDIES: His ECG in the Emergency Room last night, he had a sinus rhythm, septal Q-waves, nonspecific ST and T-wave changes. His workup, he had a chest x-ray in the Emergency Room, normal heart size, clear lung guerrier, some atelectasis. He actually had a CT scan of the chest using a PE protocol last night in the Emergency Room that showed no pulmonary embolus, no aortic dissection, some atelectasis. LABORATORY WORK: Sodium 143, BUN 26, creatinine 1.6. His troponins all 0.06. His white blood cell count 5.4, hemoglobin 14.2. IMPRESSION AND RECOMMENDATIONS: 1. Chest pain. Atypical for angina. Suspect musculoskeletal. Consider nuclear stress test. 2. Previous coronary artery stents. Continue aspirin a day. 3. Hypertension. The patient is on ARB. 4. Hyperlipidemia. The patient is on a statin drug. 5. History of lymphoma. The patient has completed chemotherapy. 6. Previous stroke with no residual. <ELECTRONICALLY SIGNED> By: Turner Berman MD, [facility] 11/05/20 1309 1300 [id number] Berman MD, [facility] /nt
--- NOTE | 2020-11-05 15:00 | NUR ---
CM INFORMED BY THE RN IN-CHARGE OF THE PT OF THE PHYSICIAN'S PLAN FOR THE PT TO TRANSFER. REASON: FOR SERVICES NOT AVAILABLE AT OUR FACILITY. FACILITY: [facility] (DR HEREDIA HAS SPOKE TO SURGEON AND HAS CONFIRMED ACCEPTING PT). BED: TELE. HOUSE SPERVISOR INFORMS THAT SHE HAS SPOKE TO [facility] HOUSE SUPERVISIOR AND IS WORKING TO ARRANGE ACCPETANCE FOR PT. SUPPLY ROOM CLERK TO CONFIRM ACCEPTING PHYSICIAN AND BED AVAILABILITY (POSSIBY TOMORROW). CM STARTED EMTALA AND PATIENT TRANFER FORM. NURSING WILL NEED TO COMPLETE ANY BLANK SECTIONS OF THE FORM INCLUDING ACCEPTING PHYSICIAN AND NURSING PORTION AND OBTAIN PHYSICIAN'S SIGNATURE. CM WILL REMAIN AVAILABLE TO ASSIST AND FOLLOW NEEDED.
--- NOTE | 2020-11-05 19:54 | NUR ---
ASSUMED CARE OF PATIENT THIS AM AT 0730. PATIENT IS ALERT AND ORIENTED X 4. HE DENIES CHEST PAIN ANS SOA. TELE SHOWS NSR. PATIENT WAS TAKEN TO COMPUTER SPECIALIST THIS AM PER BED FOR CATH AND RETURNED TO THE ROOM. HEPARIN GTT STARTED THIS AM. POST CATH RECOVERY DONE. HE IS RESTING AT THIS TIME. PATIENT INFORMED OF PLANS TO TRANSFER HIM TO [facility] IN THE AM. WILL CONTINUE TO MONITOR VS AND ASSESSMENTS. US IN FOR VEIN MAPPING AN CAROTID US AT THE BEDSIDE. WILL CONTINUE TO MONITOR. CALL LIGHT IN IN REACH.
--- NOTE | 2020-11-06 08:06 | NUR ---
PT IS ABLE TO COMMUNICATE HIS NEEDS TO STAFF EFFECTIVELY. HE HAS DENIED THE NEED FOR PAIN MEDICATION UP TO 0700 THIS MORNING. PT WILL BE TRANSFERED TO [facility] TODAY FOR CABG PROCEDURE CURRENTLY SCHEDULED FOR WEDNESDAY 11/08.
--- NOTE | 2020-11-06 08:20 | NUR ---
PT PORT ON RT CHEST ACCESSED AT APPROXIMATELY 23:00 ON 11/05/20. PERMISSION TO ACCESS PORT WAS GRANTED BY THE PATIENT SINCE NUMEROUS ATTEMPTS TO ESTABLISH PERIPHERAL IV ACCESS WERE UNSUCCESSFUL.
[2020-11-06] MEDS ORDERED: METOPROLOL TART25 MG PO (08:49)
[2020-11-06] MEDS ORDERED: MUCINEX600 MG PO (08:49)
[2020-11-06] MEDS ORDERED: ACETAMINOPHEN325 M1 PO (08:49)
[2020-11-06] MEDS ORDERED: HEPARIN SO1000 UNIT/ IVPUSH (08:49)
[2020-11-06 12:17] VITALS: BP 142/63
--- NOTE | 2020-11-06 14:37 | NUR ---
ASSUMED CARE OF PATIENT THIS AM AT 0730. PATIENT REMAINS ALERT AND ORIENTED X 4. HE C/O CHEST TIGHTNESS BUT REFUSES ANY PAIN MEDICATION. PLAN CONTINUES TO HAVE PATIENT TRANSFERRED TO [facility]. TELE SHOWS SR WITH [facility]. HEPARIN THERAPY CONTINUED. PTT THERAPUETIC. NO FALLS OR INJURY. PATIENT IS TAKING HIS DIET WELL. NOW WATING FOR ROOM ASSIGNMENT [facility].
[2020-11-06 16:14] VITALS: BP 121/61
[2020-11-07] MEDS ORDERED: LIPITOR40 MG PO (10:20)
--- NOTE | 2020-11-07 13:06 | CON ---
[address] [address] CONSULTATION Name: PILAR LANTIGUA Room: [address] IN M.R.#: [id number] Admission: 11/04/20 Attend Phys: Juanita Brito MD Discharge: 11/06/20 Date of : 44 Report #: [id number] THIS REPORT FOR: cc: FAM - No family physician/PCP FAM - No family physician/PCP ~ Turner Berman MD [facility] DATE OF SERVICE: 11/06/2020 CARDIOLOGY CONSULTATION HISTORY OF PRESENT ILLNESS: The patient is a 80-year-old white male who was transferred to [facility] today for consideration of coronary artery bypass surgery. The patient apparently had 2 coronary artery stents placed at [facility] by Dr. Pérez back in 2013. Recently, he has had a sharp pain on the left side of his chest. He describes a soreness. It seems to be related to exertion. There is no radiation of the pain. He denied any associated shortness of breath, diaphoresis, or nausea. He has had no fever, cough, bleeding. He had a prolonged episode and called paramedics and brought to [facility] by ambulance on 11/04/2020. He ruled out for myocardial infarction. The pain was felt to be somewhat atypical for angina, so he underwent a Lexiscan Cardiolite on November 04 at [facility] using Lexiscan. Ejection fraction is 52%. Myocardial perfusion images showed a moderate-sized reversible defect involving the lateral wall. This is felt to be consistent with ischemia. I performed cardiac catheterization at [facility] on Saturday11/05/2020. Ejection fraction is 45%. There was a 95% stenosis of the distal left main artery. There was a 90% narrowing of the ostium of the circumflex artery. There appeared to be a high-grade stenosis of the ostium of the right coronary artery, although the 2 stents in the right coronary artery appeared patent. He was felt to have severe left main disease and I recommended bypass surgery. He is transferred to [facility] at this time for cardiac catheterization. The patient was placed on heparin at the end of the procedure. PAST MEDICAL HISTORY: Significant for cholecystectomy, hernia repair, knee replacement, tonsillectomy. He had a previous stroke affecting the right side of his body. He has a history of lymphoma and still has his port in place. He finished chemotherapy last year. He was treated at with chemotherapy. CURRENT MEDICATIONS: Include aspirin, Lipitor, Neurontin, losartan, and omeprazole. He was recently placed on metoprolol. ALLERGIES: He has no known drug allergies. FAMILY HISTORY: His father and [place] [address] CONSULTATION Name: PILAR LANTIGUA Room: [address] IN .R.#: [id number] Admission: 11/04/20 Attend Phys: Juanita Brito MD Discharge: 11/06/20 Date of : 44 Report #: [id number] SOCIAL HISTORY: He is . He and his live in [place], [place]. 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 No smoking or alcohol abuse. REVIEW OF SYSTEMS: No history of asthma, liver disease, kidney disease, chronic skin condition or psychiatric illness. PHYSICAL EXAMINATION: GENERAL: Revealed an elderly male, appeared in no distress. VITAL SIGNS: He had a blood pressure of 100/60, pulse is 70, he is afebrile. HEENT: He was anicteric. Conjunctivae are pink. Mucous membranes are moist. CHEST: Clear to auscultation. CARDIOVASCULAR: Regular rate and rhythm. ABDOMEN: Soft. EXTREMITIES: Had no edema. SKIN: Cool and dry. NEUROLOGIC: Nonfocal. RADIOLOGICAL DATA: His ECG showed a sinus rhythm, nonspecific ST and T-wave changes, septal Q-waves were noted. His workup at [facility] prior to transfer included an echocardiogram that showed an ejection fraction 45% with left atrial enlargement, mild mitral regurgitation, no pericardial effusions. He had vein mapping done prior to transfer to [facility] that was done to assess his vein adequacy for bypass. His carotid Doppler study was done prior to discharge to [facility] that showed plaquing with no significant stenosis. He actually had a CTA of the chest using a PE protocol on admission because of his atypical chest pain that showed no pulmonary embolus, aortic dissection, some atelectasis, small cysts. His chest x-ray on admission to [facility] showed some atelectasis, otherwise unremarkable. LABORATORY DATA: Sodium 142, potassium 4.2, creatinine 1.0, glucose 115. His liver function studies were normal. Troponins all 0.06. BNP 514. Cholesterol 109, triglyceride 73, HDL 37, LDL 58. Previous TSH was 2.7 in 2019. His recent hemoglobin A1c was 6.7. White blood cell count 4.8, hemoglobin 13.6. IMPRESSION AND RECOMMENDATIONS: 1. Coronary artery disease, noted to have severe left main disease. Recommend cardiac catheterization. 2. Hypertension. The patient is on an ARB and beta-nolberto. 3. Hyperlipidemia. The patient is on a statin drug. 4. History of lymphoma. The patient has IV access in place. [place] [address] CONSULTATION Name: PILAR LANTIGUA Room: [address] IN M.R.#: [id number] Admission: 11/04/20 Attend Phys: Juanita Brito MD Discharge: 11/06/20 Date of : 44 Report #: [id number] 5. Previous stroke. Carotid Doppler shows no significant stenosis. 6. Mild cardiomyopathy. The patient is on a beta-nolberto and ARB. <ELECTRONICALLY SIGNED> By: Turner Berman MD, FACC 11/07/20 1306 0838 [id number] Berman MD, FACC /nt
== END 2020-11-06 17:20 | disposition short-term general hospital (02) | DRG 286 ==
LOC: M.ERS 20:16 → M.TBA-ER 23:45 → M.2W 11-04 07:48 → M.TBA-ER 11-04 09:30 → M.2W 11-04 12:18
PROVIDERS: Emergency Medicine; ADMIT Internal Medicine; ATTEND Internal Medicine
PROC: 4A023N7 Measurement of Cardiac Sampling and Pressure, Left Heart, Percutaneous Approach (ICD-10-PCS; principal; 2020-11-05)
PROC: B2151ZZ Fluoroscopy of Left Heart using Low Osmolar Contrast (ICD-10-PCS; principal; 2020-11-05)
PROC: B2111ZZ Fluoroscopy of Multiple Coronary Arteries using Low Osmolar Contrast (ICD-10-PCS; principal; 2020-11-05)
DX: I25.118 Atherosclerotic heart disease of native coronary artery with other forms of angina pectoris (principal); N17.0 Acute kidney failure with tubular necrosis; I24.9 Acute ischemic heart disease, unspecified; Z96.653 Presence of artificial knee joint, bilateral; I10 Essential (primary) hypertension; M17.0 Bilateral primary osteoarthritis of knee; E78.5 Hyperlipidemia, unspecified; I42.9 Cardiomyopathy, unspecified; Z20.822 Contact with and (suspected) exposure to COVID-19; Z90.49 Acquired absence of other specified parts of digestive tract; Z86.73 Personal history of transient ischemic attack (TIA), and cerebral infarction without residual deficits; Z85.72 Personal history of non-Hodgkin lymphomas; Z82.49 Family history of ischemic heart disease and other diseases of the circulatory system; Z95.5 Presence of coronary angioplasty implant and graft; Z92.21 Personal history of antineoplastic chemotherapy; Z86.711 Personal history of pulmonary embolism

== ENCOUNTER 2021-03-27 08:01 | Emergency (ER) | payer MEDICARE, BC ==
[~2021-03-27] VITALS: Ht 188 cm; Wt 96.2 kg
[~2021-03-27 08:01] MED LIST changes: +ACETAMINOPHEN325 M1 PO; +FERREX 150 PLU1 EAC1 PO; +HEPARIN SO1000 UNIT/ IVPUSH; +LIPITOR40 MG PO; +METOPROLOL TART25 MG PO; +MUCINEX600 MG PO; +PACERONE 200 M200 M1 PO; +TYLENOL EXTRA500 MG PO
[2021-03-27] MEDS ORDERED: COZAAR 25 MG TA25 M1 PO (08:14)
[2021-03-27] MEDS ORDERED: PEPCID AC20 MG PO (08:15)
[2021-03-27] MEDS ORDERED: DESYREL150 MG PO (08:15)
[2021-03-27 09:03] LABS: CALCIUM 8.7 mg/dL (8.5-10.1); CREATININE 1.1 mg/dL (0.6-1.3)
[2021-03-27 09:04] LABS: MPV 6.5 fl. (7.2-11.1)
[2021-03-27 09:06] LABS: ABSOLUTE EOSINOPHILS 0.1 thou/uL (0.0-0.7); ABSOLUTE LYMPHOCYTES 0.5 thou/uL (0.8-5.3); ABSOLUTE MONOCYTES 0.4 thou/uL (0.0-1.2); ABSOLUTE NEUTROPHILS 3.8 thou/uL (1.6-8.1); BASOPHILS 0.5 %; EOSINOPHILS 2.7 %; HEMOGLOBIN 13.5 gm/dL (14.0-18.0); LYMPHOCYTES 9.7 %; MCH 29.4 pg (26.0-34.0); MCHC 33.8 g/dL (28.0-37.0); MCV 86.9 fL (80.0-100.0); NUCLEATED RBCS 0 /100WBC; PLATELET COUNT* 126 thou/uL (150-400); POLYS 78.1 %; RBC 4.61 mil/uL (4.50-6.00); RDW-CV 15.6 % (10.5-14.5); WBC 4.8 thou/uL (4.0-11.0)
[2021-03-27 09:08] LABS: TOTAL BILIRUBIN 1.1 mg/dL (<0.1-1.0); TOTAL PROTEIN 7.2 g/dL (6.4-8.2)
[2021-03-27] MEDS ORDERED: DOXYCYCLINE 10100 M2 PO (09:25)
[2021-03-27 09:48] VITALS: BP 126/65
--- NOTE | 2021-03-28 08:57 | EKG ---
[place] [address] ELECTROCARDIOGRAM REPORT Name: PILAR LANTIGUA Room: [facility]#: [id number] Admission: 03/27/21 Attend Phys: Discharge: 03/27/21 Date of : 44 Date of Service: 03/27/21 0832 Report #: [id number] THIS REPORT FOR: //name// [facility] ED Test Date: 2021-03-27 Test Time: 08:32:42 Pat Name: PILAR LANTIGUA Department: Room: Gender: Adolescent Counselor: CD : 1940 Requested By: Mauri Esquivel Order Number: [id number] : Harshli Crane Measurements Intervals [place] Rate: 80 P: 62 MS: 185 QRS: 44 QRSD: 106 T: 83 QT: 401 QTc: 463 Interpretive Statements Sinus rhythm Atrial premature complex Anterior infarct, old Nonspecific T abnormalities, lateral leads Compared to ECG 11/04/2020 02:38:34 Atrial premature complex(es) now present T-wave abnormality now present Left-axis deviation no longer present Early repolarization no longer present Possible ischemia no longer present Myocardial infarct finding still present Electronically Signed On 03-28-2021 8:56:52 CDT by Harshil Crane [email or web address] <ELECTRONICALLY SIGNED> By: Harshil Crane MD, [facility] 03/28/2156 1 1 Harshil Crane MD, [facility] /EPI
== END 2021-03-27 09:50 | disposition home or self-care (01) ==
LOC: M.ERS 08:01
PROVIDERS: Emergency Medicine Emergency Medical Services
DX: J18.9 Pneumonia, unspecified organism (principal); I10 Essential (primary) hypertension; Z90.49 Acquired absence of other specified parts of digestive tract; Z96.653 Presence of artificial knee joint, bilateral; Z95.5 Presence of coronary angioplasty implant and graft; Z86.711 Personal history of pulmonary embolism; Z95.1 Presence of aortocoronary bypass graft; Z86.73 Personal history of transient ischemic attack (TIA), and cerebral infarction without residual deficits

== ENCOUNTER 2021-05-26 10:03 | Emergency (ER) | payer MEDICARE, BC ==
[~2021-05-26] VITALS: Ht 188 cm; Wt 96.2 kg
[~2021-05-26 10:03] MED LIST changes: +DESYREL150 MG PO; +DOXYCYCLINE 10100 M2 PO; +PEPCID AC20 MG PO
[2021-05-26] MEDS ORDERED: PRILOSEC OTC20 MG PO (10:26)
[2021-05-26 10:56] LABS: URINE BILIRUBIN NEGATIVE (Negative); URINE BLOOD NEGATIVE (Negative); URINE CLARITY CLEAR; URINE COLOR YELLOW; URINE GLUCOSE-RANDOM NEGATIVE (Negative); URINE KETONES NEGATIVE (Negative); URINE LEUKOCYTES-REFLEX NEGATIVE (Negative); URINE NITRITE-REFLEX NEGATIVE (Negative); URINE PROTEIN NEGATIVE (Negative)
[2021-05-26 12:06] LABS: ABSOLUTE BASOPHILS 0.1 thou/uL (0.0-0.2); ABSOLUTE EOSINOPHILS 0.1 thou/uL (0.0-0.7); ABSOLUTE LYMPHOCYTES 0.8 thou/uL (0.8-5.3); ABSOLUTE MONOCYTES 0.3 thou/uL (0.0-1.2); ABSOLUTE NEUTROPHILS 3.1 thou/uL (1.6-8.1); BASOPHILS 1.3 %; EOSINOPHILS 2.9 %; HEMATOCRIT 44.5 % (42.0-52.0); HEMOGLOBIN 14.6 gm/dL (14.0-18.0); LYMPHOCYTES 17.8 %; MCH 29.8 pg (26.0-34.0); MCHC 32.9 g/dL (28.0-37.0); MCV 90.8 fL (80.0-100.0); MONOCYTES 7.6 %; MPV 6.4 fl. (7.2-11.1); NUCLEATED RBCS 0 /100WBC; PLATELET COUNT* 159 thou/uL (150-400); POLYS 70.4 %; RDW-CV 15.6 % (10.5-14.5); WBC 4.4 thou/uL (4.0-11.0)
[2021-05-26 12:22] LABS: CALCIUM 8.7 mg/dL (8.5-10.1); POTASSIUM 4.5 mmol/L (3.5-5.1)
[2021-05-26 12:26] LABS: ALBUMIN 4.3 g/dL (3.4-5.0); TOTAL BILIRUBIN 0.8 mg/dL (<0.1-1.0); TOTAL PROTEIN 7.4 g/dL (6.4-8.2)
[2021-05-26] MEDS ORDERED: MEDROLDOSEPACK PO (12:56)
[2021-05-26 13:10] VITALS: BP 132/70
== END 2021-05-26 13:10 | disposition home or self-care (01) ==
LOC: M.ERS 10:03
PROVIDERS: Physician Assistant
DX: M47.815 Spondylosis without myelopathy or radiculopathy, thoracolumbar region (principal); I10 Essential (primary) hypertension; I25.10 Atherosclerotic heart disease of native coronary artery without angina pectoris; Z96.653 Presence of artificial knee joint, bilateral; Z90.49 Acquired absence of other specified parts of digestive tract; Z79.899 Other long term (current) drug therapy